=== PATIENT | female | born 1955 | race African-American/Black ===

== ENCOUNTER 2018-11-09 11:56 | Emergency (ER) | payer OTHER ==
[~2018-11-09] VITALS: Ht 162.6 cm; Wt 92.1 kg
[2018-11-09 13:35] LABS: ABSOLUTE NEUTROPHILS 7.9 thou/uL (1.4-8.2); BASOPHILS 0.5 % (0.0-2.0); EOSINOPHILS 0.6 % (0.0-3.0); HEMATOCRIT 39.6 % (37.0-47.0); HEMOGLOBIN 13.3 gm/dL (12.0-15.0); LYMPHOCYTES 18.3 % (24.0-44.0); MCH 27.1 pg (26.0-34.0); MCHC 33.6 g/dL (28.0-37.0); MCV 80.5 fL (80.0-100.0); MONOCYTES 7.1 % (1.0-8.0); PLATELET COUNT 243 thou/uL (150-400); POLYS 73.5 % (36.0-66.0); RBC 4.91 mil/uL (4.20-5.00); RDW 15.1 % (10.5-14.5); WBC 10.7 thou/uL (4.0-11.0)
[2018-11-09 13:44] LABS: ANION GAP 11 mmol/L (7-16); BUN 14 mg/dL (7-18); CALCIUM 9.9 mg/dL (8.5-10.1); CHLORIDE 104 mmol/L (98-107); CO2 23 mmol/L (21-32); CREATININE 1.3 mg/dL (0.6-1.0); GLUCOSE 134 mg/dL (74-106); POTASSIUM 3.6 mmol/L (3.5-5.1); SODIUM 138 mmol/L (136-145)
[2018-11-09 13:49] LABS: APTT 28.4 Seconds (24.5-32.8); D-DIMER 0.47 ug/mLFEU (0.19-0.50); PROTIME 10.7 Seconds (9.3-11.4)
[2018-11-09 13:55] LABS: ALBUMIN 3.2 g/dL (3.4-5.0); MAGNESIUM 1.9 mg/dL (1.8-2.4); SGOT 10 U/L (15-37); SGPT 22 U/L (30-65); TOTAL BILIRUBIN 0.7 mg/dL (<0.1-1.0); TOTAL PROTEIN 7.6 g/dL (6.4-8.2); TROPONIN-I <0.06 ng/mL (<0.06)
[2018-11-09] MEDS ORDERED: ACETAMINOPHEN-1 EAC1 PO (14:00)
[2018-11-09] MEDS ORDERED: PREDNISONE 20 M20 MG PO (14:00)
--- NOTE | 2018-11-09 15:16 | EKG ---
[facility] [place] [address] ELECTROCARDIOGRAM REPORT Name: SARA FOSTER Room #: [facility] [id number] Admission: 11/09/18 Attend Phys: Discharge: Date of : 57 Report #: [id number] THIS REPORT FOR: //name// [facility] ED Test Date: 2018-11-09 Test Time: 11:58:53 Pat Name: SARA FOSTER Department: Room: Gender: F Ortho Nurse: WG : 1955 Requested By: Morteza Jenkins Order Number: [id number] MD: Sarabjit Smith Measurements Intervals [place] Rate: 117 P: 40 [place]: 150 QRS: -25 QRSD: 73 T: 31 QT: 298 QTc: 416 Interpretive Statements Sinus tachycardia Atrial premature complex Abnormal R-wave progression, early transition Inferior infarct, old No previous ECG available for comparison Electronically Signed On 11-09-2018 15:15:53 CDT by Sarabjit Smith [email or web address] <ELECTRONICALLY SIGNED> By: Sarabjit Smith MD, [facility] 11/09/18 1515 1158 1158 Sarabjit Smith MD, FACC /EPI
[2018-11-09 17:23] VITALS: BP 166/90
== END 2018-11-09 17:23 | disposition home or self-care (01) ==
LOC: ER 11:56
PROVIDERS: Emergency Medicine
DX: C34.91 Malignant neoplasm of unspecified part of right bronchus or lung (principal); R07.89 Other chest pain; R79.89 Other specified abnormal findings of blood chemistry; M79.89 Other specified soft tissue disorders; G81.94 Hemiplegia, unspecified affecting left nondominant side; M79.605 Pain in left leg; Z86.73 Personal history of transient ischemic attack (TIA), and cerebral infarction without residual deficits

== ENCOUNTER 2019-02-20 04:14 | Emergency (ER) | payer OTHER ==
[~2019-02-20] VITALS: Ht 162.6 cm; Wt 91.6 kg
[~2019-02-20 04:14] MED LIST: ACETAMINOPHEN-1 EAC1 PO; PREDNISONE 20 M20 MG PO
[2019-02-20] MEDS ORDERED: TYLENOL WITH CO1 TA1 PO (06:13)
[2019-02-20 06:27] LABS: INR 1.8
[2019-02-20 06:32] LABS: HEMATOCRIT 42.7 % (37.0-47.0); MCH 26.9 pg (26.0-34.0); MCHC 32.8 g/dL (28.0-37.0); MCV 82.2 fL (80.0-100.0); RBC 5.19 mil/uL (4.20-5.00); RDW 15.2 % (10.5-14.5); WBC 11.1 thou/uL (4.0-11.0)
[2019-02-20 06:39] LABS: CREATININE 1.4 mg/dL (0.6-1.0); POTASSIUM 4.2 mmol/L (3.5-5.1)
[2019-02-20 06:44] LABS: ALBUMIN 3.6 g/dL (3.4-5.0); TOTAL BILIRUBIN 0.5 mg/dL (<0.1-1.0); URIC ACID* 5.7 mg/dL (2.6-7.2)
[2019-02-20 09:45] VITALS: BP 114/82
== END 2019-02-20 09:47 | disposition home or self-care (01) ==
LOC: ER 04:14
PROVIDERS: Emergency Medicine
DX: R60.9 Edema, unspecified (principal); I10 Essential (primary) hypertension; Z86.73 Personal history of transient ischemic attack (TIA), and cerebral infarction without residual deficits

== ENCOUNTER 2020-02-28 17:15 | Inpatient (IN) | payer OTHER ==
[~2020-02-28] VITALS: Ht 162.6 cm; Wt 116.5 kg
[~2020-02-28 17:15] MED LIST changes: +TYLENOL WITH CO1 TA1 PO
[2020-02-28 17:35] VITALS: BP 133/74
[2020-02-28 18:05] LABS: BE(vivo) -6.7 mmol/L (-2 to +3); HCO3 16.9 mmol/L (22.0-26.0); PCO2 28.7 mmHg (35.0-45.0); PO2 206.4 mmHg (80.0-100.0); pH 7.387 (7.360-7.450); sO2 99.4 % (92.0-98.0)
[2020-02-28 18:49] LABS: ABSOLUTE NEUTROPHILS 8.6 thou/uL (1.4-8.2); BASOPHILS 0.3 % (0.0-2.0); EOSINOPHILS 0.1 % (0.0-3.0); HEMATOCRIT 39.7 % (37.0-47.0); LYMPHOCYTES 6.5 % (24.0-44.0); MCH 27.1 pg (26.0-34.0); MCHC 32.7 g/dL (28.0-37.0); MCV 83.1 fL (80.0-100.0); MONOCYTES 3.8 % (1.0-8.0); PLATELET COUNT 222 thou/uL (150-400); POLYS 89.3 % (36.0-66.0); RBC 4.77 mil/uL (4.20-5.00); RDW 17.5 % (10.5-14.5); WBC 9.6 thou/uL (4.0-11.0)
[2020-02-28 18:57] LABS: ANION GAP 11 mmol/L (7-16); BUN 21 mg/dL (7-18); CALCIUM 8.6 mg/dL (8.5-10.1); CHLORIDE 104 mmol/L (98-107); CO2 25 mmol/L (21-32); CREATININE 1.8 mg/dL (0.6-1.0); GLUCOSE 140 mg/dL (74-106); POTASSIUM 4.3 mmol/L (3.5-5.1); SODIUM 140 mmol/L (136-145)
[2020-02-28 19:07] LABS: ALBUMIN 2.6 g/dL (3.4-5.0); SGOT 43 U/L (15-37); SGPT 23 U/L (30-65); TOTAL BILIRUBIN 0.9 mg/dL (0.2-1.0); TOTAL PROTEIN 7.2 g/dL (6.4-8.2)
[2020-02-28 19:23] LABS: TROPONIN-I <0.06 ng/mL (<0.06)
[2020-02-28 20:28] LABS: URINE CLARITY CLOUDY; URINE COLOR YELLOW; URINE PROTEIN (DIPSTICK) 3+ (Negative)
[2020-02-28 20:29] LABS: URINE BILIRUBIN NEGATIVE (Negative); URINE BLOOD 1+ (Negative); URINE GLUCOSE-RANDOM* NEGATIVE (Negative); URINE KETONES NEGATIVE (Negative); URINE LEUKOCYTES-REFLEX 3+ (Negative); URINE NITRITE-REFLEX POSITIVE (Negative); URINE UROBILINOGEN 0.2 E.U./dl (0.2-1.0)
[2020-02-28 20:30] LABS: BACTERIA-REFLEX >30 Many /HPF (None Seen); CASTS None Seen /LPF (None Seen); CRYSTALS None Seen /LPF (None Seen); MUCUS 4-6 Moderate strn/LPF (None Seen); SQUAMOUS 0-3 Few /LPF (0-3); URINE WBC-REFLEX >25 Many /HPF (0-5)
[2020-02-28 20:31] LABS: WBC CLUMPS Moderate (None Seen)
[2020-02-28 20:46] VITALS: BP 113/67
[2020-02-28 20:50] VITALS: BP 113/67
[2020-02-28 22:04] VITALS: BP 119/65
[2020-02-28 22:23] VITALS: BP 132/67
--- NOTE | 2020-02-29 04:22 | NUR ---
covid positive per lab report at this time.
[2020-02-29 04:40] LABS: HEMATOCRIT 39.8 % (37.0-47.0); HEMOGLOBIN 12.7 gm/dL (12.0-15.0); MCH 26.7 pg (26.0-34.0); MCV 83.3 fL (80.0-100.0); RBC 4.77 mil/uL (4.20-5.00); RDW 17.2 % (10.5-14.5); WBC 9.5 thou/uL (4.0-11.0)
[2020-02-29 04:44] LABS: CALCIUM 8.2 mg/dL (8.5-10.1); CREATININE 1.4 mg/dL (0.6-1.0); MAGNESIUM 2.2 mg/dL (1.8-2.4); POTASSIUM 4.4 mmol/L (3.5-5.1)
[2020-02-29 04:55] VITALS: BP 153/86
[2020-02-29 04:56] VITALS: BP 153/86
--- NOTE | 2020-02-29 05:10 | NUR ---
ASSESSMENTS CHARTED, MEDS CHARTED GIVEN. PATIENT ARRIVED MID SHIFT FROM ED ON BIPAP. ALERT AND ORIENTED. SINUS TACH ON TELEMETRY. PATIENT HAS PRESSURE WOUNDS, AND ESCORIATED VICENTE AREA. PATIENT SAYS SHE IS UP INDEPENDENT TO THE BATHROOM AND TAKES CARE OF HER DAILY LIVING BY HERSELF. SHE LIVES WITH HER DAUGHTER. ADMITTED INTO COMPUTER SYSTEM, SETTLED INTO ROOM. FALL PRECAUTIONS IN PLACE DURING SHIFT.
[2020-02-29 07:25] VITALS: BP 149/89
[2020-02-29 11:35] VITALS: BP 132/91
[2020-02-29 15:23] VITALS: BP 144/86
--- NOTE | 2020-02-29 17:02 | NUR ---
assumed care of pt at 0700. pt alert and oriented, in no acute distress, on bipap throughout most of day. now on high flow nasal cannula, maintains spo2 >88-89%. turned q2h. wounds covered with zguard. iv abx infusing per order. calls appropriately. wcm.
[2020-02-29 19:56] VITALS: BP 156/101
[2020-03-01 04:44] VITALS: BP 159/100
[2020-03-01 05:36] LABS: GLYCOHEMOGLOBIN (HGB A1C) 6.7 % (4.8-5.6)
--- NOTE | 2020-03-01 08:56 | NUR ---
PATIENT IS NOT TERLATED OFF BIPAP. DESAT TO 74% ON 15L/NC. SWITCHED TO BIPAP 75% FIO2 SAT 98%.
[2020-03-01 09:00] VITALS: BP 153/92
--- NOTE | 2020-03-01 12:13 | HC ---
[facility] [place] [address] CONSULTATION Name: SARA FOSTER Room #: 360- ADM IN M.R.#: [id number] Admission: 02/28/20 Attend Phys: Jim Almeida MD Discharge: Date of : 57 Report #: [id number] THIS REPORT FOR: cc: Venessa Gilmore MD, Kelly A. MD Jetmore, Allen B. MD ~ DATE OF SERVICE: 02/29/2020 WOUND CARE CONSULTATION LOCATION: [facility]. REASON FOR CONSULTATION: Pressure sores of right and left buttock in the setting of immobility and COVID-19 pneumonia with respiratory insufficiency. HISTORY OF PRESENT ILLNESS: The patient is a 64-year-old woman living at home, admitted to the Emergency Room for respiratory decompensation with shortness of breath and generalized malaise. The grandson at home tested positive for COVID-19 and the patient has tested positive for COVID-19 in the hospital. She is immobile with a foot drop, history of cerebrovascular accident. She was noted to have pressure sores of her back or buttocks. Wound Care is consulted. She has respiratory insufficiency, was found to have interstitial opacities on chest x-ray and has been begun on IV antibiotics, vancomycin, Zosyn and azithromycin. Wound care is consulted for wounds of her back. PAST MEDICAL HISTORY: 1. Immobility. 2. Cerebrovascular accident with left-sided residual weakness and foot drop. 3. Hypertension. 4. Obesity. 5. History of renal cancer. PAST SURGICAL HISTORY: Left nephrectomy. SOCIAL HISTORY: She lives with her daughter. Grandson lives in the home who is COVID-19 positive. ALLERGIES: No known drug allergies. PHYSICAL EXAMINATION: GENERAL: Shows an alert, obese woman on a BiPAP breathing mask. HEENT: Mucous membranes are moist. She is alert and cooperative. NECK: Shows full range of motion. EXTREMITIES: There are no lower extremity wounds. ABDOMEN: Obese. Examination of the patient's lower abdomen and groin crease [address] [address] CONSULTATION Name: SARA FOSTER Room #: [address] [place] [address] [place] .R.#: [id number] Admission: 02/28/20 Attend Phys: Jim Almeida MD Discharge: Date of : 57 Report #: [id number] shows fungal dermatitis in bilateral groin creases where the abdominal panniculus is in contact with the groin. Nystatin powder ordered. BACK: Examination of the patient's back shows a stage 2 pressure sore of her right upper buttock near the sacrum measuring approximately 3 x 4 cm. There is a smaller 1.5 x 2 cm stage 2 pressure ulcer of her left lower buttock. These are tender to touch. IMPRESSION: 1. Obesity. 2. Respiratory failure with COVID-19 pneumonia. 3. Fungal dermatitis of bilateral groin creases. Nystatin powder ordered b.i.d. 4. Immobility status post cerebrovascular accident with left lower extremity weakness. 5. Right upper buttock stage 2 pressure ulcer. Barrier cream ordered and offloading with low air loss mattress. 6. Left lower buttock stage 2 pressure ulcer. Barrier cream ordered b.i.d. and offloading with low air loss mattress. Wound Care team will follow. <ELECTRONICALLY SIGNED> By: Akbar Gimenez MD 03/01/20 1213 0603 0714 Akbar Gimenez MD /nt
[2020-03-01 12:43] VITALS: BP 164/97
[2020-03-01 17:19] VITALS: BP 150/103
--- NOTE | 2020-03-01 18:21 | NUR ---
VAT CONSULTED FOR A CL FOR COVID+ STATUS AND POSS ICU TSF. 1ST IJ ATTEMPT WITH TIP ACROSS SUBCLAVIAN AND OTW EXCHANGED FOR A NEW CL AND TIP UP THE RT IJ. IR TO REPOSITION PT WILL NOT ALLOW THE LEFT SIDE TO BE ATTEMPTED. WILL PLACE ORDER FOR IR TO PLACE 03/02/20
--- NOTE | 2020-03-01 18:24 | NUR ---
PT HAS LT CVA AND VESSELS IN CEDRIC ARE NOT ADEQUATE FOR A PICC. PT IS ALSO HIGH RISK FOR DVT DUE TO COVID STATUS. PT HAD A NEPHRECTOMY DUE TO KIDNEY CANCER AND WILL NEED VESSEL PRESERVATION FOR FUTURE NEEDS. ORDER FOR IR TO REPOSITION RT IJ PLACED FOR 03/02/20 AT 0800
[2020-03-01 19:59] VITALS: BP 150/90
[2020-03-02 03:51] VITALS: BP 142/84
--- NOTE | 2020-03-02 05:53 | NUR ---
PT MAKING POOR PROGRESS TOWARDS GOALS. ON BIPAP THROUGHOUT THE NIGHT, OCCASIONALLY ON O2 AT 15L PER NC INORDER TO TAKE SOME PO. O2 SATS ON BIAP 02/11 FI02 70% ARE IN THE MID 90'S. O2 AT 15L PER NC HAS STATS AT 79-81%. PT DID STATE THAT SHE FEELS SHE IS BREATHING EASIER SINCE USING THE BIPAP. PT DID REMAIN ON BIPAP THROUGHOUT THE NIGHT. PT REQUIRED X2 ASSISTANCE TO SIT UP AND SIT AT THE BEDSIDE. BARRIER CREAM APPLIED TO BL BUTTOCK WOUNDS.
[2020-03-02 06:27] LABS: ABSOLUTE NEUTROPHILS 8.4 thou/uL (1.4-8.2); BASOPHILS 0.1 % (0.0-2.0); EOSINOPHILS 0.2 % (0.0-3.0); HEMATOCRIT 34.9 % (37.0-47.0); HEMOGLOBIN 11.2 gm/dL (12.0-15.0); MCH 26.6 pg (26.0-34.0); MCV 83.2 fL (80.0-100.0); MONOCYTES 8.4 % (1.0-8.0); PLATELET COUNT 223 thou/uL (150-400); POLYS 86.3 % (36.0-66.0); RBC 4.19 mil/uL (4.20-5.00); RDW 17.1 % (10.5-14.5); WBC 9.7 thou/uL (4.0-11.0)
[2020-03-02 06:49] LABS: ALBUMIN 2.2 g/dL (3.4-5.0); CALCIUM 7.5 mg/dL (8.5-10.1); CREATININE 1.4 mg/dL (0.6-1.0); DIRECT BILIRUBIN 0.2 mg/dL (<0.1-0.2); PHOSPHORUS 2.3 mg/dL (2.5-4.9); POTASSIUM 3.8 mmol/L (3.5-5.1); TOTAL BILIRUBIN 0.4 mg/dL (0.2-1.0)
[2020-03-02 07:36] LABS: INR 1.5; PROTIME 15.6 Seconds (9.3-11.4)
[2020-03-02 08:27] VITALS: BP 142/91
[2020-03-02 11:50] VITALS: BP 147/82
[2020-03-02 15:32] VITALS: BP 150/85
--- NOTE | 2020-03-02 16:15 | NUR ---
INITIAL ASSESSMENT: Received consult. SW reviewed chart and spoke with nursing and attending physician. Pt was admitted from home due to acute respiratory failure. Pt placed in Enhanced Isolation. Pt had positive COVID test prior to admission. Pt is afebrile and requiring bipap support. Pt is on IV abx and IV steroids. Pt has started course of Remdesivir. Pt with hx of CVA. Pt lives at home with her daughter. Will need therapy evals ordered to assist with recommendation for discharge needs. SW to follow up with pt/family and assist as needed.
--- NOTE | 2020-03-02 16:22 | NUR ---
ASSUMED PATIENT CARE AT 0700. A/O X4. SWITCHED TO NRB AT 1530 GIVE PATIENT BREAK OFF BIPAP. PATIENT TOLERATED WELL. ASSISTED TURN. VSS. SLOWLY TOWARDS POC GOALS.
[2020-03-02 19:48] VITALS: BP 159/86
[2020-03-03 04:55] VITALS: BP 162/95
--- NOTE | 2020-03-03 06:09 | NUR ---
PT MAKING SLOW PROGRESS TOWARDS GOALS. PT INITIALLY ON NRB MASK WITH O2 SATS 94-95%. PT AGREEABLE AND COMPLIANT WITH WEARING BIPAP OVERNIGHT. PT DID REPORT THAT SHE FEELS SHE IS BREATHING MORE EASILY THAN YESTERDAY.
[2020-03-03 06:26] LABS: ALBUMIN 2.2 g/dL (3.4-5.0); CALCIUM 7.4 mg/dL (8.5-10.1); CREATININE 1.3 mg/dL (0.6-1.0); DIRECT BILIRUBIN 0.2 mg/dL (<0.1-0.2); PHOSPHORUS 2.3 mg/dL (2.5-4.9); POTASSIUM 3.8 mmol/L (3.5-5.1); TOTAL BILIRUBIN 0.6 mg/dL (0.2-1.0); TOTAL PROTEIN 5.7 g/dL (6.4-8.2)
[2020-03-03 07:26] VITALS: BP 146/82
[2020-03-03 11:10] VITALS: BP 163/94
--- NOTE | 2020-03-03 15:18 | NUR ---
NATALIIA reviewed chart and spoke with nursing and attending physician. Pt remains in Enhanced Isolation due to COVID-19. Pt is afebrile and requiring bipap support. Pt is on IV abx and IV steroids. Pt is completing course of Remdesivir. NATALIIA spoke with pt's dtr, Tereza, via phone. Introduced role of NATALIIA. Pt is normally alert/orientated. Pt lives at home with her dtr, Tereza. Tereza and family all have COVID. Prior to admission, pt was ambulating with a quad cane. There are 13 steps inside the home. Pt was not on O2 or any breathing treatments prior to admission. Pt's PCP is Dr. Venessa Gilmore. Pt was recently on service with [facility]. No hx of post-acute placement. Pt will need therapy evals when able to participate. Provided NATALIIA's contact info to Tereza. NATALIIA is following to assist as needed with discharge planning.
[2020-03-03 15:25] VITALS: BP 180/87
--- NOTE | 2020-03-03 19:41 | NUR ---
KEEPS TAKING OFF BIPAP AND YELLING FOR HELP TO PUT IT BACK ON. EDUCATED ON NEED TO LEAVE BIPAP ON HER SATS IMMEDIATELY DROP TO LOW 70s ONCE SHE IS NOT ON BIPAP. KEPT CLEAN AND DRY. CHACKO IN PLACE DRAINING CLEAR YELLOW URINE.
[2020-03-03 19:51] VITALS: BP 158/85
[2020-03-03 19:52] VITALS: BP 158/85
[2020-03-04 04:46] VITALS: BP 152/98
--- NOTE | 2020-03-04 05:44 | NUR ---
PT MAKING POOR PROGRESS TOWARD GOALS. ON BIPAP AT 70% OVERNIGHT. RT PLACED OPTIFLO AT 80% AND 50L VIA HIFLO CANNULA. O2 SAT 89-91% WITH THIS DEVICE. PT RETURNED TO BIPAP AFTER APPOXIMATELY 90 MINUTES DUE TO DROWSINESS AND FALLING O2 SAT (86-87%) ON HIFLO CANNULA. O2 SATS RETURNED TO 92% AFTER RESUMING BIPAP.
[2020-03-04 06:37] LABS: ALBUMIN 2.6 g/dL (3.4-5.0); CALCIUM 7.6 mg/dL (8.5-10.1); CREATININE 1.3 mg/dL (0.6-1.0); DIRECT BILIRUBIN 0.4 mg/dL (<0.1-0.2); PHOSPHORUS 2.3 mg/dL (2.5-4.9); POTASSIUM 4.3 mmol/L (3.5-5.1); TOTAL BILIRUBIN 0.6 mg/dL (0.2-1.0)
[2020-03-04 07:19] VITALS: BP 166/111
[2020-03-04 11:16] VITALS: BP 157/111
[2020-03-04 15:27] VITALS: BP 165/101
--- NOTE | 2020-03-04 15:42 | NUR ---
SW reviewed chart and spoke with nursing and attending physician. Pt remains in Enhanced Isolation due to COVID-19. Pt is afebrile and requiring bipap support. Pt is on IV abx and IV steroids. Completing course of Remdesivir. Pt will need therapy evals ordered when she is able to participate to assist with recommendations for discharge needs. NATALIIA is following to assist as needed with discharge planning.
--- NOTE | 2020-03-04 18:44 | NUR ---
PATIENT ON BIPAP 80% ON THIS SHIFT. REFUSED EAT. NOT TOWARDS POC GOALS.
[2020-03-04 19:40] VITALS: BP 153/104
[2020-03-05 03:57] VITALS: BP 151/104
--- NOTE | 2020-03-05 07:12 | NUR ---
PATIENTS CARE WAS ASSUMED AT SHIFT CHANGE. PATIENT WAS ASSESSED AND MEDS WERE PASSED. PATIENT HAD A CONTINUES PROBLEM GETTING DISCONNECTED FROM THE BI PAP. RESTRINS ORDER WAS OBTAINED AT 0300. PROBLEM RESOLVED AND TUBE WAS ALSO TAPED. BED IS IN A LOW AND LOCK POSITION
[2020-03-05 07:13] LABS: ALBUMIN 2.6 g/dL (3.4-5.0); CALCIUM 8.3 mg/dL (8.5-10.1); CREATININE 1.4 mg/dL (0.6-1.0); DIRECT BILIRUBIN 0.3 mg/dL (<0.1-0.2); PHOSPHORUS 2.7 mg/dL (2.6-4.7); POTASSIUM 4.4 mmol/L (3.5-5.1); TOTAL BILIRUBIN 0.7 mg/dL (0.2-1.0); TOTAL PROTEIN 6.4 g/dL (6.4-8.2)
[2020-03-05 07:27] VITALS: BP 164/105
[2020-03-05 11:45] VITALS: BP 172/95
[2020-03-05 15:36] VITALS: BP 167/73
--- NOTE | 2020-03-05 20:24 | NUR ---
ASSUMED PATIENT CARE AT 0700. A/O X3 CONFUSED. OFF RESTRAINT AT 0800. REFUSED TO EAT. BIPAP MASK PULLED OFF THREE TIMES. NOT TOWARDS POC GOALS.
[2020-03-05 20:50] VITALS: BP 146/94
[2020-03-06 01:51] VITALS: BP 153/84
--- NOTE | 2020-03-06 05:34 | NUR ---
CALL TO LAB TO REQUEST STAT TROPONIN, NO ANSWER FOR 2 NUMBERS AND LET RING FOR OVER 1 MINUTE
--- NOTE | 2020-03-06 06:16 | NUR ---
BIPAP COMING APART OR PT PULLING AT TUBING ALL SHIFT. ORIENTED TO SELF AND KNOWS SHES IN THE HOSPITAL BUT THOUGHT SHE WAS AT [facility]. REPORTED CHEST PAIN AT 0530, INTERMITTENT, NOT RELATED TO BREATHING, CRYING OUT WITH PAIN AT ONE MOMENT, LAUGHING WITH RN THE NEXT. GAVE ZOFRAN AND OBTAINED EKG, STAT TROP, AWAITING RESULTS AND CALLED REYNOLD AGUSTIN. REPOSITIONED WHEN PT ALLOWS.
--- NOTE | 2020-03-06 07:21 | EKG ---
[address] [place] [address] ELECTROCARDIOGRAM REPORT Name: SARA FOSTER Room #: 360-P ADM IN M.R.#: [id number] Admission: 02/28/20 Attend Phys: Jim Almeida MD Discharge: Date of : 57 Report #: [id number] [facility] Test Date: 2020-03-06 Test Time: 05:15:45 Pat Name: SARA FOSTER Department: Room: 360 P Gender: F Public Relations Account Supervisor: Rogelio Robertson : 1955 Requested By: Luz Elena Montalvo Order Number: [id number] MD: Sarabjit Smith Measurements Intervals [place] Rate: 92 P: 11 NC: 114 QRS: -28 QRSD: 84 T: 57 QT: 369 QTc: 457 Interpretive Statements Sinus rhythm Borderline short NC interval Abnormal R-wave progression, early transition Inferior infarct, old Compared to ECG 02/28/2020 18:58:24 Myocardial infarct finding now present Sinus tachycardia no longer present Electronically Signed On 03-06-2020 7:21:06 CARDIOVASCULAR DISEASE SPECIALIST by Sarabjit Smith [email or web address] <ELECTRONICALLY SIGNED> By: Sarabjit Smith MD, [facility] 03/06/20 0721 4 4 Sarabjit Smith MD, [facility] /EPI
[2020-03-06 08:31] VITALS: BP 153/95
[2020-03-06 09:30] VITALS: BP 145/85
--- NOTE | 2020-03-06 09:49 | NUR ---
Persistant hyperglycemia: added carb control diet and may want to consider discontinue D5 fluids
[2020-03-06 12:35] VITALS: BP 147/74
--- NOTE | 2020-03-06 13:42 | NUR ---
NATALIIA reviewed chart and spoke with nursing and attending physician. Pt remains in Enhanced Isolation due to COVID-19. Pt is afebrile and requiring bipap support. Pt is on IV abx and IV steroids. NATALIIA received call from pt's dtr, Marycruz, and pt's niece. Conference call regarding family request of pt appointing a DPOA. NATALIIA explained that pt must be alert/orientated x 4 in order to complete DPOA document. Pt's family verbalized understanding and would like to speak with pt's dtr. Pt's dtr states she has not spoken with a physician during hospitalization. NATALIIA provided Marycruz's contact info to attending physician. Per attending physician, pt has the capacity to appoint a DPOA. Spiritual care and house shorer paged to notarize DPOA documentation. Documentation to be placed on chart once completed. No weekend discharge planned. Pt will need therapy evaluations when able to participate. NATALIIA is following to assist as needed with discharge planning.
[2020-03-06 16:57] VITALS: BP 150/84
--- NOTE | 2020-03-06 18:02 | NUR ---
ASSUMED PATIENT CARE AT 0700 . A/O 3. REFUSED EAT. SWITCHED TO OPTIFLOW 50L 90%. PATIENT TOLERATED WELL. SLOWLY TOWARDS POC GOALS.
[2020-03-06 19:58] VITALS: BP 146/73
[2020-03-07] VITALS (33 sets, daily range): BP systolic 112–188; BP diastolic 26–108
[2020-03-07 00:55] LABS: BE(vivo) 2.4 mmol/L (-2 to +3); HCO3 26.1 mmol/L (22.0-26.0); PCO2 37.3 mmHg (35.0-45.0); PO2 58.5 mmHg (80.0-100.0); pH 7.462 (7.360-7.450); sO2 91.9 % (92.0-98.0)
--- NOTE | 2020-03-07 06:30 | NUR ---
PT ANXIOUS, CONFUSED, CONTINUALLY TAKING BIPAP OFF AND DESAT TO 50-70%. GAVE ATIVAN X2 AND CALLED CRIME SCENE SPECIALIST FOR RESTRAINT ORDER, PT WAS NOT REORIENTABLE AND NOT CALMED BY THE ATIVAN ALONE. AFTER PLACING RESTRAINT, PT RESTED THROUGHOUT SHFT, PULLING TV 500+, MINIMAL AIR LEAK ON VENT AND SATS 95-99%. PT ELEVATED AND TURNED WITH PILLOWS
[2020-03-07 09:36] LABS: MCV 83.4 fL (80.0-100.0)
[2020-03-07 09:38] LABS: HEMATOCRIT 42.1 % (37.0-47.0); HEMOGLOBIN 13.6 gm/dL (12.0-15.0); MCH 26.9 pg (26.0-34.0); MCHC 32.2 g/dL (28.0-37.0); RBC 5.05 mil/uL (4.20-5.00); RDW 17.2 % (10.5-14.5); WBC 19.2 thou/uL (4.0-11.0)
[2020-03-07 10:29] LABS: ABSOLUTE NEUTROPHILS 17.9 thou/uL (1.4-8.2); ANISOCYTOSIS 1+
[2020-03-07 10:30] LABS: PLATELET COUNT 265 thou/uL (150-400)
[2020-03-07 11:12] LABS: ALBUMIN 2.9 g/dL (3.4-5.0); CALCIUM 8.9 mg/dL (8.5-10.1); CREATININE 1.3 mg/dL (0.6-1.0); MAGNESIUM 2.5 mg/dL (1.8-2.4); POTASSIUM 4.6 mmol/L (3.5-5.1); TOTAL BILIRUBIN 0.8 mg/dL (0.2-1.0); TOTAL PROTEIN 6.4 g/dL (6.4-8.2)
--- NOTE | 2020-03-07 11:38 | NUR ---
CONFERENCE AND EVENT ORGANISER CALLED AT 1020. SEE FLOWSHEET. PT NOW WITH ORDERS FOR ICU AND WILL TRANSFER AT THIS TIME.
--- NOTE | 2020-03-07 12:27 | NUR ---
ASSUMED PATIENT CARE AT 0700. ALERT RESTLESS ON BED WITH RIGHT HAND ON RESTRAINT.NOTED PATIENT HAS DARK BLOOD ON LIPS. DEEPLY ORAL CARE JOSE NOT SEE ANY BLEEDING. NOTED PATIENT CUGHT OUT RED BLOOD QIUT BIT. SHIPPING ASSOCIATE INITIATED AT 0920. DR ZELAYA COME TO SEE PATIENT. STAT ORDER DONE. NOTIFIED PATIENT DAUGHTER GABI PATIENT CONDITION. FAMILY CHANGED PATIENT CODE TO FULL CODE. PATIENT CHIKA HAS RED BLOOD COUGHTED OUT. SUCTION AND ORAL CARE NEED. FACETIME TO FAMILY. PATIENT WILL TRANSFER TO [facility] SOON.
--- NOTE | 2020-03-07 15:14 | NUR ---
SPOKE WITH GRANDSON ON THE PHONE REGARDING DTR WISHES TO TRANSFER PATIENT TO [facility] DUE TO CONVERSATION WITH DR BERTRAND. INFORMED G-SON THAT PT IS NOT STABLE FOR TRANSFER AT THIS TIME BUT WILL REACH OUT IF BECOMES STABLE. ALSO, [place] AT [place]. SPOKE WITH DAUGHTER OVER THE PHONE, WHO WAS VERY IRATE AND YELLING, STATING SHE WAS TREATED UNPROFESSIONALLY BY THE DR. I TRIED TO GIVE HER AN UPDATE AND GIVE HER THE PATIENT ADVOCATE NUMBER BUT SHE WOULD NOT TAKE IT. STATES SHE WILL HAVE THE NEWS AND A MID WIFE PREPARED.
--- NOTE | 2020-03-07 15:31 | NUR ---
1520- Per Dr. Sal, give Ativan that he ordered at this time.
--- NOTE | 2020-03-07 16:31 | NUR ---
THIS RN WAS TAKE CARE THIS PATIENT IN PASSED A FEW DAYS. PATIENT ALERT AND ORIENTED. WAS ON BIPAP 6 DAYS. I ASKED PATIENT TWO TIMES" DO YOU WANT BE INTUBATED PUT YOU ON VENT IF YOU ARE NOT ABLE TO BREATHING WELL BY YOU SELF" PATIENT STATE " NO. I DONT WANT TO". ON 03/06/20 [facility] CAME UP TRY TO DO DPOA PAPER. RN SAID PATIENT ON BIPAP YOU PROABBLY NOT ABLE TO HERE WHAT SHE SAY. [facility] ASKING ME BRING A PIECE PAPER LET PATIENT WRITE WHO WILL BE HER DOPA IF PATINET NOT ABLE TO MAKE HER OWN DECISION. PATIENT WRITE HER GRANDSON KAREN. [facility] GOT THAT PAPER TOLD RN HE WILL CONTACT KAREN THEN COME BACK TO ME.
--- NOTE | 2020-03-07 17:51 | NUR ---
5FRTLCL PLACED LT IJ, PLEASE SEE NI FOR DETAILS
[2020-03-07 19:10] LABS: INR 1.5; PROTIME 15.6 Seconds (9.3-11.4)
--- NOTE | 2020-03-07 20:49 | NUR ---
1300: ASSUMED CARE AT 1300 FROM 3W RNJESUS. PT ARRIVED ON BIPAP, TRANSFERED AND SETTLED IN THE ICU. DR. BERTRAND PRESENT WHEN PT ARRIVED, PLAN OF CARE DISCUSSED. DR. BERTRAND VOICED HE WANTS PT TO REMAIN RESTRAINED ON BIPAP WITH THE RISK OF HEMOPTYSIS, PT IS A DNI AND CANNOT TOLERATE OPTIFLOW, PER DR. BERTRAND. RN WILL CONTINUE TO MONITOR. 1630: VASCULAR ACCESS ACHIEVIED BY IV TEAM PLACING A LEFT IJ, STAT CHEST X RAY APPROVED LOCATION.
[2020-03-08] VITALS (31 sets, daily range): BP systolic 79–172; BP diastolic 16–127
[2020-03-08 05:29] LABS: BE(vivo) 1.6 mmol/L (-2 to +3); PO2 87.6 mmHg (80.0-100.0); pH 7.387 (7.360-7.450); sO2 96.5 % (92.0-98.0)
--- NOTE | 2020-03-08 06:00 | NUR ---
PT REMAINS ON BIPAP DROUSY. REFUSES TO BE TURNED. 600 CC UOP THIS SHIFT. NO FURTHER BLEEDING. VSS WILL CONT TO MONITOR
--- NOTE | 2020-03-08 12:20 | NUR ---
ASSUMED CARE AT 0700, ASSESSMENT AND VITAL SIGNS COMPLETED PER ICU PROTOCOL. DR. BERTRAND ROUNDED THIS AM, PLAN OF CARE DISCUSSED. RN WILLC CONTINUE TO MONITOR. PT'S DAUGHTER, GABI CALLED RN FOR AN UPDATE, SECURITY CODE PROVIDED. NO FURTHER QUESTIONS VOICED.
[2020-03-08 21:37] LABS: HEMATOCRIT 34.6 % (37.0-47.0); MCH 26.5 pg (26.0-34.0); MCHC 31.7 g/dL (28.0-37.0); MCV 83.8 fL (80.0-100.0); RBC 4.14 mil/uL (4.20-5.00); RDW 17.5 % (10.5-14.5)
[2020-03-08 21:38] LABS: PLATELET COUNT 156 thou/uL (150-400)
[2020-03-08 22:03] LABS: ALBUMIN 2.3 g/dL (3.4-5.0); CALCIUM 8.5 mg/dL (8.5-10.1); CREATININE 1.2 mg/dL (0.6-1.0); POTASSIUM 4.8 mmol/L (3.5-5.1); TOTAL BILIRUBIN 0.7 mg/dL (0.2-1.0); TOTAL PROTEIN 5.5 g/dL (6.4-8.2)
[2020-03-08 22:31] LABS: ABSOLUTE NEUTROPHILS 16.6 thou/uL (1.4-8.2); ANISOCYTOSIS 1+
[2020-03-09] VITALS (67 sets, daily range): BP systolic 84–162; BP diastolic 48–109
--- NOTE | 2020-03-09 06:00 | NUR ---
REMAINS ON BIPAP 90 % DROUSY 1500 CC UO . PRECEDEX AT 0.1 MCG SINUS RHYTHM. COVID+ WILL CONT TO MONITOR.
--- NOTE | 2020-03-09 07:53 | EKG ---
[place] [address] [facility] [place] [address] ELECTROCARDIOGRAM REPORT Name: SARA FOSTER Room #: 238-P ADM IN M.R.#: [id number] Admission: 02/28/20 Attend Phys: Jim Almeida MD Discharge: Date of : 57 Report #: [id number] [facility] ED Test Date: 2020-02-28 Test Time: 18:58:24 Pat Name: SARA FOSTER Department: Room: 360 Gender: F Punchboard Assembler: JACOB : 1955 Requested By: Luke Canchola Order Number: [id number] MD: Don Medina Measurements Intervals [place] Rate: 111 P: 13 CO: 128 QRS: 82 QRSD: 85 T: 53 QT: 341 QTc: 464 Interpretive Statements Sinus tachycardia Ventricular premature complex Borderline right axis deviation Low voltage, precordial leads Abnormal R-wave progression, early transition Nonspecific T abnormalities, anterior leads Compared to ECG 11/09/2018 11:58:53 Ventricular premature complex(es) now present Low QRS voltage now present T-wave abnormality now present Atrial premature complex(es) no longer present Electronically Signed On 03-02-2020 7:18:05 PLATER SUPERVISOR by Don Medina [email or web address] <ELECTRONICALLY SIGNED> By: Don Medina MD, FACC 03/02/20 0718 57 57 Don Medina MD, FACC /EPI
[2020-03-09 08:59] LABS: ABSOLUTE NEUTROPHILS 15.6 thou/uL (1.4-8.2); BASOPHILS 0.1 % (0.0-2.0); HEMATOCRIT 34.9 % (37.0-47.0); LYMPHOCYTES 1.6 % (24.0-44.0); MCH 26.3 pg (26.0-34.0); MCHC 31.4 g/dL (28.0-37.0); MCV 83.6 fL (80.0-100.0); PLATELET COUNT 151 thou/uL (150-400); POLYS 92.3 % (36.0-66.0); RBC 4.18 mil/uL (4.20-5.00); RDW 17.5 % (10.5-14.5); WBC 16.9 thou/uL (4.0-11.0)
[2020-03-09 09:16] LABS: ALBUMIN 2.3 g/dL (3.4-5.0); CALCIUM 8.6 mg/dL (8.5-10.1); CREATININE 1.1 mg/dL (0.6-1.0); MAGNESIUM 2.5 mg/dL (1.8-2.4); PHOSPHORUS 2.7 mg/dL (2.6-4.7); POTASSIUM 4.5 mmol/L (3.5-5.1); TOTAL BILIRUBIN 0.7 mg/dL (0.2-1.0); TOTAL PROTEIN 5.4 g/dL (6.4-8.2)
--- NOTE | 2020-03-09 09:25 | NUR ---
0983- Nurse talked with and updated patients daughterMarycruz. Her questions were answered.
--- NOTE | 2020-03-09 11:54 | NUR ---
1154- Nurse talked with patients daughter to inform her of intubation request per Physician. She expressed she is agreeable to this. Nurse called the phone number for Jonh two times, with only a viocemail, no answer. Nurse to continue to attempt to call.
[2020-03-09 13:36] LABS: BE(vivo) -1.6 mmol/L (-2 to +3); HCO3 25.5 mmol/L (22.0-26.0); PCO2 53.9 mmHg (35.0-45.0); PO2 78.6 mmHg (80.0-100.0); sO2 94.1 % (92.0-98.0)
[2020-03-09 13:37] LABS: pH 7.293 (7.360-7.450)
--- NOTE | 2020-03-09 14:10 | NUR ---
1410- WARNER MOREL, RETURNED RNS CALL. HE WAS UPDATED ON CURRENT EVENTS AND INTUBATION REQUIREMENT. Questions answered in regards to patient status and orientation.
--- NOTE | 2020-03-09 15:40 | NUR ---
Case discussed with the care team. Pt remains in ICU with worsening respiratory status requiring intubation today. Nursing attempting to reach pt's judie Mcpherson and dtr Marycruz. Will follow along for support as needed.
--- NOTE | 2020-03-09 21:03 | NUR ---
ASSUMED CARE OF PATIENT AT 1900. PATIENT HYPOTHERMIC, CHACKO HAS TEMP MONITORING. BEAR HUGGER PLACED, EXTRA BLANKETS. CVP INITIATED PER DR BOLANOS, SPOT CHECK READS 19. MAKING EXCELLENT URINE. DAUGHTER CALLED AT 2099, UPDATE GIVEN. NOT PROGRESSING TOWARDS POC GOALS AT THIS TIME.
[2020-03-10] VITALS (36 sets, daily range): BP systolic 95–144; BP diastolic 27–70
[2020-03-10 09:10] LABS: HEMATOCRIT 28.3 % (37.0-47.0); MCH 26.5 pg (26.0-34.0); MCHC 31.3 g/dL (28.0-37.0); MCV 84.8 fL (80.0-100.0); RBC 3.33 mil/uL (4.20-5.00); RDW 17.2 % (10.5-14.5); WBC 21.7 thou/uL (4.0-11.0)
[2020-03-10 09:17] LABS: HEMOGLOBIN 8.8 gm/dL (12.0-15.0)
[2020-03-10 09:23] LABS: CALCIUM 8.2 mg/dL (8.5-10.1); CREATININE 1.2 mg/dL (0.6-1.0); POTASSIUM 4.6 mmol/L (3.5-5.1)
--- NOTE | 2020-03-10 10:18 | NUR ---
SPOKE WITH PATIENT'S DAUGHTER, GABI, AND UPDATED HER ON THE PATIENT'S STATUS AND POC FOR TODAY.
--- NOTE | 2020-03-10 13:45 | NUR ---
BEDSIDE EGD DONE
--- NOTE | 2020-03-10 16:19 | NUR ---
THANH. NIDHI CALLED IN AND UPDATED ON HER MOTHER'S CONDITION AND POC.
--- NOTE | 2020-03-10 16:21 | NUR ---
PATIENT IS NOT PROGRESSING TOWARDS OUTCOME GOALS SHE REMAINS SEDATED AND REQUIRING FIO2 OF 80% AND PEEP OF 8CM. OG HELD PER GI FOR ESOPHOITIS AND CLOTS NOTED VIA EGD. URINE OUTPUT ADEQUATE BUT MARINAL AT 30 TO 45 ML/HR. BRIDGETT HUGGER OFF AT 1413. MONITOR SHOWING SR TO ST.
[2020-03-11] VITALS (39 sets, daily range): BP systolic 104–173; BP diastolic 39–84
--- NOTE | 2020-03-11 07:45 | NUR ---
ASSESSMENTS CHARTED, MEDS CHARTED GIVEN, PATIENT SEDATED THROUGHOUT SHIFT, SINUS RHYTHM, COARSE/DIM ON VENTILLATOR. ET TUBE CLOTTED. PATIENT NPO DUE TO ESOPHOGEAL BLOOD CLOTS, NO OG TUBE. Q6 ACCU CHECK, ON RESTRAINTS, WOUNDS TREATED. PATIENT TURNED CHARTED. FALL PRECAUTIONS IN PLACE DURING SHIFT.
--- NOTE | 2020-03-11 08:27 | P ---
[facility] [place] [address] PROCEDURE REPORT Name: SARA FOSTER Room #: 238-P ADM IN M.R.#: [id number] Admission: 02/28/20 Attend Phys: Jim Almeida MD Discharge: Date of : 57 Report #: [id number] THIS REPORT FOR: cc: Venessa Gilmore MD, Kelly A. MD McElhinney, Christian C. MD ~ DATE OF SERVICE: 03/10/2020 PROCEDURE PERFORMED: Upper endoscopy. HISTORY OF PRESENT ILLNESS: The patient is a 65-year-old female with COVID positive pneumonia, respiratory failure in the ICU on a ventilator, sedated at this time. Apparently several days ago had episodes of hematemesis. We were consulted yesterday. Her hemoglobin on admission on 02/27 was 13.0. It has slowly trended down since the , yesterday it was 11.0, today however is 8.8. Consult was done yesterday, we were considering upper endoscopy; however, the patient did have episodes of bradycardia yesterday. Apparently, she has episodes at times. Cardiology is following. She has been on a Protonix drip. She is not on any anticoagulation therapy currently, although she was on Lovenox, which has been discontinued. Plan is for upper endoscopy today. DESCRIPTION OF PROCEDURE: The risks and benefits of the procedure were explained to the patient's family, those risks including but not limited to bleeding, perforation and the risk of sedation. She understood these risks and gave informed consent. The procedure was performed in the ICU room at the bedside. The patient is already on a ventilator at this time as well as sedated with a propofol drip. Next, using an Olympus upper endoscope, the scope was placed in the patient's mouth and advanced under direct vision through the esophagus, stomach and into the second portion of the duodenum. Upon entering the patient's mouth bright red blood was noted. This was aspirated away. Large amount of clots were noted within the esophagus, initially unable to visualize this area well, I advanced the scope into the stomach, at which point approximately 100 mL of maroon-colored liquid blood was noted. This was aspirated away. There were several clots; however, that remained in the stomach, primarily in the fundus, which did limit visualization of the areas of the gastric mucosa that were visualized. There were no abnormalities. No obvious ulcerations were noted, but visualization was limited. The pylorus was normal and patent. Old blood was noted throughout the duodenum. Several washings and aspirations were performed. No obvious ulcerations or bleeding site was noted within the duodenum. The scope was then brought back up into the patient's esophagus and several washings and aspirations were performed. I was able to more clearly visualize the esophagus. The proximal esophagus was normal; however, beginning in the mid esophagus, a severe large ulceration was noted and this extended all the way down to the GE junction with several clots, one of which was very large and broad-based. I was unable to evaluate exactly [address] [address] PROCEDURE REPORT Name: SARA FOSTER Room #: 238-P [facility] IN M.R.#: [id number] Admission: 02/28/20 Attend Phys: Jim Almeida MD Discharge: Date of : 57 Report #: [id number] where it was adherent to, another clot was noted that was smaller adherent to the wall in the ulceration, this was approximately 8 mm in diameter. There was no active bleeding noted. A small amount of maroon blood was noted throughout the esophagus. This was aspirated away. Because of the clots being on a flat large ulcerative lesion, this was not amenable to cautery or endoclip placement. I did also not perform epinephrine injection as it was difficult to tell where the large clot was adherent to and since there was no active bleeding at this time, I felt it was best to leave the clot in place. At this point, the scope was then withdrawn and the procedure terminated. The patient tolerated the procedure well. IMPRESSION: 1. Severe large ulceration involving the mid and distal esophagus with large adherent clots as described above. Difficult situation as this is not treatable with endoclip or cautery, could consider epinephrine injection at times if active bleeding, but again this is a temporizing measure. 2. Old blood within the stomach. No obvious ulcerations. 3. Duodenum was normal. RECOMMENDATIONS: 1. Continue PPI drip. 2. Avoid OG or NG tube placement at this time. 3. Recommend TPN for nutritional support. 4. Continue to monitor hemoglobin closely. 5. Avoid any anticoagulation therapy at this time. Thank you for allowing me to participate in her care. <ELECTRONICALLY SIGNED> By: Antione Muñoz MD 03/11/20 0827 [id number] [id number] Antione Muñoz MD /nt
[2020-03-11 16:30] LABS: MCH 27.7 pg (26.0-34.0); MCHC 32.1 g/dL (28.0-37.0); RBC 3.26 mil/uL (4.20-5.00); RDW 18.4 % (10.5-14.5); WBC 23.5 thou/uL (4.0-11.0)
--- NOTE | 2020-03-11 18:36 | NUR ---
GRAND SON LORI, AND PATIENT DAUGHTER UPDATED WITH PATIENT's CONDITION.
[2020-03-12] VITALS (51 sets, daily range): BP systolic 105–169; BP diastolic 37–69
[2020-03-12 00:09] LABS: ALBUMIN 1.7 g/dL (3.4-5.0); CREATININE 1.1 mg/dL (0.6-1.0); MAGNESIUM 2.5 mg/dL (1.8-2.4); PHOSPHORUS 2.7 mg/dL (2.6-4.7); POTASSIUM 4.7 mmol/L (3.5-5.1); TOTAL BILIRUBIN 0.4 mg/dL (0.2-1.0); TOTAL PROTEIN 4.3 g/dL (6.4-8.2)
[2020-03-12 04:35] LABS: BE(vivo) -2.7 mmol/L (-2 to +3); HCO3 22.3 mmol/L (22.0-26.0); PCO2 39.3 mmHg (35.0-45.0); PO2 57.6 mmHg (80.0-100.0); pH 7.372 (7.360-7.450); sO2 89.4 % (92.0-98.0)
[2020-03-12 05:13] LABS: HEMATOCRIT 29.2 % (37.0-47.0); HEMOGLOBIN 9.2 gm/dL (12.0-15.0); MCH 26.7 pg (26.0-34.0); MCHC 31.3 g/dL (28.0-37.0); MCV 85.3 fL (80.0-100.0); RBC 3.43 mil/uL (4.20-5.00); RDW 18.2 % (10.5-14.5); WBC 20.9 thou/uL (4.0-11.0)
[2020-03-12 05:19] LABS: CREATININE 1.1 mg/dL (0.6-1.0); POTASSIUM 4.5 mmol/L (3.5-5.1)
[2020-03-12 05:29] LABS: MAGNESIUM 2.6 mg/dL (1.8-2.4); PHOSPHORUS 2.2 mg/dL (2.5-4.9)
--- NOTE | 2020-03-12 06:41 | NUR ---
ASSESSMENTS CHARTED, MEDS CHARTED GIVEN, PATIENT REMAINS SEDATED, ON VENT, IN RESTRAINT, TURNS CHARTED. ON PROPOFOL AND VERSED FOR SEDATION. TPN STARTED, PROTONIX AND 1/2 NS RUNNING DURING SHIFT. FALL PRECAUTIONS IN PLACE DURING SHIFT.
--- NOTE | 2020-03-12 11:39 | NUR ---
Assumed care at 0700, assessment and vital signs completed per ICU protocol. Dr. Lee and Dr. Roger rounded this am, plan of care discussed. RN will continue to monitor.
[2020-03-13] VITALS (59 sets, daily range): BP systolic 114–167; BP diastolic 40–83
[2020-03-13 05:51] LABS: CALCIUM 8.4 mg/dL (8.5-10.1); CREATININE 1.1 mg/dL (0.6-1.0); POTASSIUM 4.8 mmol/L (3.5-5.1)
[2020-03-13 05:53] LABS: HEMATOCRIT 29.3 % (37.0-47.0); HEMOGLOBIN 9.1 gm/dL (12.0-15.0); MCH 26.7 pg (26.0-34.0); MCV 86.1 fL (80.0-100.0); RBC 3.4 mil/uL (4.20-5.00); RDW 18.5 % (10.5-14.5); WBC 19.1 thou/uL (4.0-11.0)
[2020-03-13 05:55] LABS: MAGNESIUM 2.6 mg/dL (1.8-2.4); PHOSPHORUS 2.2 mg/dL (2.6-4.7)
--- NOTE | 2020-03-13 19:02 | NUR ---
assumed care of pt at 0700. [address] Dr. CICI pruitt. stated he would like go ahead from GI to resume lovenox. 1330 updated family daughter regarding pt status. family disheartened by pt lack of progress. 1500 peep increased from 10 to 12. output adequate. hypothermic throughout the day. protonix gtt for GI ulcer. no pressers bp adequate. overall not progressing in plan of care
--- NOTE | 2020-03-13 22:15 | NUR ---
This RN spoke to Marycruz Macias, patients daughter at 2200 today. Updated on patient status and all questions answered.
[2020-03-14] VITALS (29 sets, daily range): BP systolic 106–152; BP diastolic 37–88
[2020-03-14 05:23] LABS: HEMATOCRIT 31.7 % (37.0-47.0); HEMOGLOBIN 9.7 gm/dL (12.0-15.0); MCH 26.6 pg (26.0-34.0); MCHC 30.5 g/dL (28.0-37.0); MCV 87.4 fL (80.0-100.0); RBC 3.63 mil/uL (4.20-5.00); RDW 18.9 % (10.5-14.5); WBC 19.7 thou/uL (4.0-11.0)
--- NOTE | 2020-03-14 05:30 | NUR ---
This RN spoke to Jonh, grandson, regarding patient status. All questions answered.
[2020-03-14 06:02] LABS: CALCIUM 8.5 mg/dL (8.5-10.1); CREATININE 0.9 mg/dL (0.6-1.0); MAGNESIUM 2.7 mg/dL (1.8-2.4); POTASSIUM 5.1 mmol/L (3.5-5.1)
--- NOTE | 2020-03-14 07:25 | NUR ---
Vent settings unchanged. Remains on propofol, versed and protonix gtt. TPN infusing. Restraints discontinued yesterday. Patient not progressing towards goals.
--- NOTE | 2020-03-14 10:51 | NUR ---
ASSUMMED CARE FROM THE NIGHT NUSES AT 0700. BRIDGETT HAGAN APPLIED FOR LOW TEMP AT 0800.
--- NOTE | 2020-03-14 11:42 | NUR ---
DAUGHTER, GABI CALLED IN, AND UPDATED HER ON THE PATIENT'S PROGRESS.
[2020-03-15] VITALS (22 sets, daily range): BP systolic 107–183; BP diastolic 40–68
--- NOTE | 2020-03-15 03:28 | NUR ---
PT REMAINS ON THE VENTILATOR. LUNGS ARE COARSE TO DIMINISHED. SINUS TACH NOTED ON MONITOR. COARSE TO DIMINISHED . CHACKO TO DD WITH YELLOW URINE IN CATHETER. SCD ON BILAERAL. TURN Q 2 HOURS CREAM TO COCCYX AREA DONE PER NURSING. REMAINS ON TPN AT THIS TIME PER NURSING. ENHANCEED PRCAUTIONS IN ISOLATION AT THIS TIME PER ALIE. POSITIVE COVID. NO NEW ORDERS AT THIS TIME PER NURSING. WILL CONTINUE TO ASSESS AND MONITOR PER NURSING.
[2020-03-15 04:29] LABS: CALCIUM 8.8 mg/dL (8.5-10.1); CREATININE 1.1 mg/dL (0.6-1.0); MCH 27.4 pg (26.0-34.0); MCHC 31.3 g/dL (28.0-37.0); MCV 87.3 fL (80.0-100.0); POTASSIUM 5.5 mmol/L (3.5-5.1); RBC 3.67 mil/uL (4.20-5.00); WBC 26.5 thou/uL (4.0-11.0)
[2020-03-15 08:13] LABS: MAGNESIUM 2.7 mg/dL (1.8-2.4); PHOSPHORUS 3.9 mg/dL (2.6-4.7)
--- NOTE | 2020-03-15 17:10 | NUR ---
SPOKE WITH PATIENT'S DAUGHTER, GABI, AND UPDATED HER ON HER MOTHER'S STATUS.
--- NOTE | 2020-03-15 19:00 | NUR ---
PATIENT IS NOT PROGRESSING TOWARDS OUTCOME GOALS, EXTERMITIES ARE FLACCID. SEDATION DECREASED AND ONLY SL TACHCHYNIC. REMAINS NPO, NO BLEEDING OR BLOODY EMESIS NOTED. URINE OUTPUT ADEQUATE VIA CHACKO.
[2020-03-16] VITALS (27 sets, daily range): BP systolic 113–167; BP diastolic 39–74
[2020-03-16 06:22] LABS: ALBUMIN 1.9 g/dL (3.4-5.0); CALCIUM 8.7 mg/dL (8.5-10.1); CREATININE 0.9 mg/dL (0.6-1.0); MAGNESIUM 2.4 mg/dL (1.8-2.4); PHOSPHORUS 1.5 mg/dL (2.5-4.9); POTASSIUM 4.5 mmol/L (3.5-5.1); TOTAL BILIRUBIN 0.8 mg/dL (0.2-1.0)
--- NOTE | 2020-03-16 06:44 | NUR ---
Assumed care of patient at 0000. Patient continues on sedation. Added Fentanyl for vent management. Heart rate and rhythm stable. Blood pressures stable. Continues with Ernestine hugger to maintain normothermia. Holding anticoagualation. Had to increase FIO2 to 80% to maintain adequate oxygenation. Large U/o. Labs drawn and resutls noted. Patient not progressing towards goals. see documentation on interventions for assessment detials.
[2020-03-16 11:11] LABS: HCO3 30.8 mmol/L (22.0-26.0); PCO2 66.2 mmHg (35.0-45.0); PO2 85.6 mmHg (80.0-100.0); pH 7.285 (7.360-7.450)
--- NOTE | 2020-03-16 12:53 | NUR ---
ON-GOING ASSESSMENT: CM REVIEWED CHART. PT IS COVID POSITIVE AND REMAINS ON THE VENT. PT IS UNABLE TO WEAN AT THIS TIME. CM ATTEMPTED TO REACH OUT TO PATIENTS WARNER JONES BUT UNABLE TO REACH AT THIS TIME. PER PRORGRESS NOTE PALLIATIVE CARE MAY BE CONSULTED. CM WILL CONTINUE TO OFOLLOW TO ASSIST NEEDED.
[2020-03-17] VITALS (22 sets, daily range): BP systolic 131–165; BP diastolic 31–62
[2020-03-17 06:54] LABS: CALCIUM 9.1 mg/dL (8.5-10.1); CREATININE 0.9 mg/dL (0.6-1.0); MAGNESIUM 2.6 mg/dL (1.8-2.4); PHOSPHORUS 3.4 mg/dL (2.5-4.9); POTASSIUM 5.5 mmol/L (3.5-5.1)
--- NOTE | 2020-03-17 11:09 | NUR ---
ASSUMMED CARE AT 0700 FROM JONO VILLANUEVA, PATIENT REMAINS SEDATED. WILL OPEN EYES WHEN SEDATIONS IS DECREASED AND REPOSITIONED IN BED. VENT SETTINGS UNCHANGED. WILL CONTINUE TO MONITOR.
--- NOTE | 2020-03-17 11:12 | NUR ---
SPOKE WITH PATIENT'S DAUGHTER GABI AND UPDATED HER ON THE PATIENT'S STATUS. MESSAGE LEFT WITH ESPERANZA OF INFECTIOUS DISEASE CONCERNING WHEN THE PATIENT COMES OUT OF ISOLATION.
--- NOTE | 2020-03-17 17:10 | NUR ---
SPOKE WITH DAUGHTER AT 1550 AND AGAIN REACHED OUT TO KALEB QUACH WITH NO RESPONSE MESSAGE WAS LEFT, DR GALLARDO CALLED AND RETURNED CALL AND WILL BE IN LATER TO ELVALUATE WHEN THE PATIENT CAN COME OUT OF ISOLATION. DAUGHTER CALLED BACK AND INFORMED OF PLAN OF CARE, REASSURANCE GIVEN.
--- NOTE | 2020-03-17 19:31 | NUR ---
PATIENT IS NOT PROGRESSING TOWARDS OUTCOME GOALS SHE REMAINS ON HIGH LEVELS OF O2 AND PEEP. PLEASE REFER TO ASSESSMENTS.
[2020-03-18] VITALS (32 sets, daily range): BP systolic 130–177; BP diastolic 38–65
[2020-03-18 04:42] LABS: BE(vivo) 3.8 mmol/L (-2 to +3); HCO3 32.1 mmol/L (22.0-26.0); PO2 68.4 mmHg (80.0-100.0); sO2 90.4 % (92.0-98.0)
[2020-03-18 04:43] LABS: PCO2 72.1 mmHg (35.0-45.0); pH 7.267 (7.360-7.450)
[2020-03-18 05:16] LABS: MAGNESIUM 2.7 mg/dL (1.8-2.4); PHOSPHORUS 2.5 mg/dL (2.5-4.9)
--- NOTE | 2020-03-18 19:15 | NUR ---
Patient not progressing towards plan of care as evidenced by continued need for support of ventilator. Patients family expressed they would like to see patient if she could be taken out of isolation. Plan of care is to continue to monitor patient status.
[2020-03-19] VITALS (31 sets, daily range): BP systolic 129–168; BP diastolic 39–65
--- NOTE | 2020-03-19 02:31 | NUR ---
PATIENT INTUBATED/SEDATED. L/S CLEAR/DIM. OPENS EYES DURING REPOSITIONING, PUPILS REACTIVE, B/S HYPOACTIVE, ABDOMEN ROUND WITH 3+GENERALIZED EDEMA.VSS, AFEBRILE, UOP ADEQUATE, NO BM AT THIS TIME.GRANDSON HERE VISITING, NO CONCERNS VOICED. DAUGHTER GABI COFFEY CALLED, UPDATED ON PATIENT'S CONDITION, VS, AND PT'S HIGH OXYGEN NEEDS AND VENT SETTINGS. ALL QUESTIONS ANSWERED. ROUNDED ON PATIENT. CYCLE THRESHOLD NUMBER FROM [facility] RESENT COVID-19 PCR RUN: CT 475/520, 32.4/33.8 CALLED TO PER ORDERS.
[2020-03-19 06:23] LABS: CALCIUM 9.4 mg/dL (8.5-10.1); CREATININE 0.8 mg/dL (0.6-1.0); MAGNESIUM 2.4 mg/dL (1.8-2.4); POTASSIUM 5.1 mmol/L (3.5-5.1)
[2020-03-19 08:23] LABS: HEMATOCRIT 26.6 % (37.0-47.0); HEMOGLOBIN 8.2 gm/dL (12.0-15.0); MCH 26.9 pg (26.0-34.0); MCHC 30.7 g/dL (28.0-37.0); MCV 87.8 fL (80.0-100.0); RBC 3.03 mil/uL (4.20-5.00); RDW 19.1 % (10.5-14.5); WBC 16.8 thou/uL (4.0-11.0)
[2020-03-19 09:44] LABS: BE(vivo) 6.4 mmol/L (-2 to +3); HCO3 32.5 mmol/L (22.0-26.0); PCO2 55.9 mmHg (35.0-45.0); PO2 65.3 mmHg (80.0-100.0); pH 7.382 (7.360-7.450); sO2 92.1 % (92.0-98.0)
--- NOTE | 2020-03-19 14:33 | NUR ---
1433- Nurse talked with patients daughter, Marycruz Macias, and updated her on patient status and plan of care. Her questions were answered. Her goal is to come up and see her mom.
--- NOTE | 2020-03-19 16:31 | NUR ---
Patient not progressing towards plan of care as evidenced by continued need for ventilator, without weaning, at this time. Patient plan of care is to continue to monitor patients assessments q2-4 hours, and vital signs q1 hour.
--- NOTE | 2020-03-19 18:44 | NUR ---
NURSE UPDATED PATIENTS DAUGHTER, GABI, IN REGARDS TO PATIENT OUT OF ISOLATION AND MOVING TO POD [address] TON[address]. ALSO EXPRESSED THAT DR[address] BERTRAND SAID HE COULD TALK WITH HER TOMORROW BETWEEN [phone] IF SHE IS UP HERE VISITING. NURSE EXPRESSED TO JUST LET OUR STAFF KNOW WHAT TIME SHE IS ABLE TO COME VISIT, IF WEATHER PERMITTING.
[2020-03-20] VITALS (27 sets, daily range): BP systolic 133–179; BP diastolic 39–109
[2020-03-20 05:07] LABS: BE(vivo) 3.9 mmol/L (-2 to +3); PCO2 55.9 mmHg (35.0-45.0); PO2 74.3 mmHg (80.0-100.0); pH 7.348 (7.360-7.450); sO2 93.9 % (92.0-98.0)
[2020-03-20 06:21] LABS: HEMOGLOBIN 7.4 gm/dL (12.0-15.0); MCV 88.1 fL (80.0-100.0); PLATELET COUNT 44 thou/uL (150-400)
[2020-03-20 06:22] LABS: HEMATOCRIT 23.6 % (37.0-47.0); MCH 27.6 pg (26.0-34.0); MCHC 31.3 g/dL (28.0-37.0); RBC 2.68 mil/uL (4.20-5.00); RDW 19.8 % (10.5-14.5); WBC 14.3 thou/uL (4.0-11.0)
[2020-03-20 06:32] LABS: MAGNESIUM 2.5 mg/dL (1.8-2.4)
[2020-03-20 06:38] LABS: CALCIUM 8.8 mg/dL (8.5-10.1); CREATININE 0.8 mg/dL (0.6-1.0); POTASSIUM 5.4 mmol/L (3.5-5.1); TOTAL BILIRUBIN 1.6 mg/dL (0.2-1.0); TOTAL PROTEIN 4.6 g/dL (6.4-8.2)
--- NOTE | 2020-03-20 10:00 | NUR ---
ASSUMED CARE OF THE PATIENT AT 0700. DR. PIÑA AT BEDSIDE AT 1000. HE WOULD LIKE TO SEE THE PATIENT MOVED TO POD 3 SO THAT FAMILY CAN COME AND SEE HER AND HOPEFULLY MOVE TOWARDS MAKING HER A DNR.
[2020-03-20 10:57] LABS: ABSOLUTE NEUTROPHILS 13.6 thou/uL (1.4-8.2); NUCLEATED RBCS 1 /100WBC; PLATELET ESTIMATE DECREASED
[2020-03-20 10:59] LABS: ANISOCYTOSIS 1+
[2020-03-21] VITALS (47 sets, daily range): BP systolic 96–167; BP diastolic 25–70
[2020-03-21 10:05] LABS: HEMATOCRIT 22.4 % (37.0-47.0); MCH 27.9 pg (26.0-34.0); MCHC 31.2 g/dL (28.0-37.0); MCV 89.2 fL (80.0-100.0); RBC 2.51 mil/uL (4.20-5.00); RDW 19.8 % (10.5-14.5); WBC 16.9 thou/uL (4.0-11.0)
[2020-03-21 11:17] LABS: CALCIUM 8.7 mg/dL (8.5-10.1); MAGNESIUM 2.4 mg/dL (1.8-2.4)
[2020-03-21 11:26] LABS: POTASSIUM 6.5 mmol/L (3.5-5.1)
--- NOTE | 2020-03-21 19:54 | NUR ---
ON THE VENT AND SEDATED, CONTINUES TO USE HIGH FIO2 AND PEEP SO UNABLE TO WEAN. VITALS STABLE. TPN FOR NUTRITION. CRITICAL K+ REPORTED TO DR. PIÑA AND NURSING EDUCATOR CONSULTED. ORDERS ACKNOWLEDGED AND EXECUTED. RECEIVED CALL FROM PATIENT'S DAUGHTER AND GRANDSON AND WERE UPDATED AND PER DR. PIÑA, HE ALSO UPDATED THE PATIENT'S DAUGHTER OVER THE PHONE. LATER THIS AFTERNOON I RECEIVED A CALL FROM PATIENT'S GRANDSON MIKE WHO STATED THAT FAMILY HAD DECIDED TO CHANGE PATIENT'S STATUS TO DNR, DR. PIÑA NOTIFIED. I ASLO CALLED THE DAUGHTER TO CONFIRM WITH THE KNOWLEDGE THAT SHE WAS ON LISTED DPOA, THE DAUGHTER CONFIRMED THIS WAS THE CASE AND THIS INFO WAS WITNESSED BY FAYE ALAS RN. I PAGED DR. PIÑA AGAIN WITH THIS INFORMATION AND HE STATED HE WOULD PUT ORDERS IN [facility]. LATER DR. PIÑA CALLED AND STATED HE TALKED WITH THE DAUGHTER AND ORDERS WERE PLACED, HE ALSO REQUESTED FOR PATIENT TO BE MOVED TO A ROOM WHERE DAUGHTER COULD COME VISIT, HE HAD ALREADY LEFT A MESSAGE WITH ASSISTANT NEWS DIRECTOR'S VOICEMAIL.THIS WAS ARRANGED AND PATIET WILL BE MOVED TO POD 3. REPORT GIVEN TO RICH FLORES.
[2020-03-21 20:49] LABS: PROT/CREAT RATIO 1.6; URINE PROTEIN-RANDOM* 33.5 mg/dL (<11.9)
[2020-03-21 21:21] LABS: ABSOLUTE RETIC COUNT 0.1176 10^6/uL; OBSERVED RETIC COUNT 4.63 % (0.6-2.6)
[2020-03-21 21:24] LABS: APTT 21.1 Seconds (24.5-32.8); FIBRINOGEN 281.8 mg/dL (210-360); INR 1.1
[2020-03-21 21:26] LABS: ALBUMIN 2.2 g/dL (3.4-5.0); DIRECT BILIRUBIN 1.3 mg/dL (<0.1-0.2); POTASSIUM 5.8 mmol/L (3.5-5.1); TOTAL BILIRUBIN 1.4 mg/dL (0.2-1.0); TOTAL PROTEIN 4.9 g/dL (6.4-8.2)
[2020-03-21 21:32] LABS: D-DIMER 26.78 ug/mLFEU (0.19-0.50)
[2020-03-22] VITALS (35 sets, daily range): BP systolic 88–141; BP diastolic 27–59
[2020-03-22 04:12] LABS: BE(vivo) -1.8 mmol/L (-2 to +3); HCO3 24.8 mmol/L (22.0-26.0); PCO2 52.7 mmHg (35.0-45.0); PO2 70.2 mmHg (80.0-100.0)
[2020-03-22 05:09] LABS: EOSINOPHILS 0.1 % (0.0-3.0); HEMATOCRIT 21.7 % (37.0-47.0); HEMOGLOBIN 6.7 gm/dL (12.0-15.0); MCH 27.7 pg (26.0-34.0); MCHC 30.9 g/dL (28.0-37.0); MCV 89.6 fL (80.0-100.0)
[2020-03-22 05:11] LABS: ABSOLUTE NEUTROPHILS 18.2 thou/uL (1.4-8.2); BASOPHILS 0.5 % (0.0-2.0); LYMPHOCYTES 1.4 % (24.0-44.0); PLATELET COUNT 46 thou/uL (150-400); RBC 2.42 mil/uL (4.20-5.00); RDW 20.3 % (10.5-14.5); WBC 18.7 thou/uL (4.0-11.0)
[2020-03-22 05:21] LABS: APTT 20.5 Seconds (24.5-32.8); PROTIME 10.7 Seconds (9.3-11.4)
[2020-03-22 05:26] LABS: ALBUMIN 2.2 g/dL (3.4-5.0); CALCIUM 8.7 mg/dL (8.5-10.1); CREATININE 2.4 mg/dL (0.6-1.0); MAGNESIUM 2.3 mg/dL (1.8-2.4); PHOSPHORUS 5.2 mg/dL (2.5-4.9); POTASSIUM 5.9 mmol/L (3.5-5.1); TOTAL BILIRUBIN 1.2 mg/dL (0.2-1.0); TOTAL PROTEIN 4.8 g/dL (6.4-8.2)
--- NOTE | 2020-03-22 19:58 | NUR ---
0700 ASSUMED CARE OF PT. 0900 1X DOSE LASIX GIVEN PER RENAL. ADEQUATE OUTPUT THROUGHOUT SHIFT. 1235 ORDER FOR NEW CHACKO PER RENAL. CHACKO INSERTED 1300. FAMILY AT BEDSIDE [id number]. LEVOPHED INITIATED FOR MAPS <60. PT REMAINS AFEBRILE. NO BM. PROGRESSING IN PLAN OF CARE.
[2020-03-23] VITALS (35 sets, daily range): BP systolic 104–148; BP diastolic 33–54
[2020-03-23 07:10] LABS: ALBUMIN 2.1 g/dL (3.4-5.0); CALCIUM 8.5 mg/dL (8.5-10.1); POTASSIUM 5.3 mmol/L (3.5-5.1)
--- NOTE | 2020-03-23 07:37 | NUR ---
ASSUMED PT CARE AT 1900. VSS, PT INTUBATED AND SEDATED ON PROPOFOL, FENTANYL AND VERSED. SEDATION VACATIN FOR 10 MINUTES, PT OPENS EYES TO PAIN VIA STERNAL RUB, DOESNT ELICIT ANY OTHER RESPONSE. BATH THIS SHIFT. PT IS STABLE. NO SIGNIFICANT CHANGES OVER NOC. WILL CONTINUE TO MONITOR PER POC
--- NOTE | 2020-03-23 17:53 | NUR ---
PT INTUBATED AND SEDATED. FIO2 TITRATED DOWN TO 80% BY RT. NO SEDATION VACATION DUE TO HIGH PEEP/FIO2. LEVOPHED GTT FOR BP SUPPORT. NO OG TUBE PER GI. AFEBRILE, NO BM, ADEQUATE UOP, TPN INFUSING. 1 UNIT OF PRBC GIVEN. NO REACTION NOTED. PT AND FAMILY HAVE BEEN UPDATED AND EDUCATED ON PT CONDITION AND POC. PT NOT PROGRESSING TOWARDS POC.
[2020-03-24] VITALS (30 sets, daily range): BP systolic 108–162; BP diastolic 31–74
--- NOTE | 2020-03-24 05:04 | NUR ---
CARE ASSUMED 1900. PT SEDATED. DOES NOT FOLLOW COMMANDS. RESPONDS TO PAINFUL STIMULI. GAP REFLEX DIMINISHED, MINIMAL ORAL SECRETIONS. PT HGB AFTER BEING TRANSFUSED DURING DAYSHIFT WAS 9.0. NO APPARENT PAIN. FAMILY UPDATED ABOUT PY CONDITION AND TRANSFUSION. ASSESSMENTS DOCUMENTED. NO TITRATION ON PT SEDATIONS OR VENT SETTINGS. NO NEW CONCERNS AT THIS TIME, NO EVENTSM, VITALS STABLE. FAMILY WOULD LIKE AN UPDATE FROM THE PHYSICIAN. WILL CONTINUE WITH POC.
[2020-03-24 06:24] LABS: HEMATOCRIT 29.1 % (37.0-47.0); HEMOGLOBIN 9.2 gm/dL (12.0-15.0); MCH 28.7 pg (26.0-34.0); MCHC 31.5 g/dL (28.0-37.0); MCV 91.2 fL (80.0-100.0); RBC 3.19 mil/uL (4.20-5.00); RDW 20.8 % (10.5-14.5); WBC 14.1 thou/uL (4.0-11.0)
[2020-03-24 06:51] LABS: ALBUMIN 2.3 g/dL (3.4-5.0); CALCIUM 9.2 mg/dL (8.5-10.1); CREATININE 1.5 mg/dL (0.6-1.0); PHOSPHORUS 3.9 mg/dL (2.5-4.9); POTASSIUM 4.6 mmol/L (3.5-5.1)
--- NOTE | 2020-03-24 15:51 | NUR ---
THIS HOGSHEAD MAT INSPECTOR MET THE PATIENT'S DAUGHTER WHILE SHE WAS VISITING HER MOTHER IN ICU. SHE WAS PLEASANT AND SPOKE LIKE EVERYTHING WAS GOING WELL. WE CONCLUDED IN PRAYER.
--- NOTE | 2020-03-24 19:00 | NUR ---
daughter, dpoa present for several hours today including when sedation vacation performed. described lack of responses to deep pain, sternal rub, noxious stimuli. pt's only response is spontaneous fluttering of eyes that increases with stimulation. stimulation increases eye fluttering. no purposeful by opening eyes to command. levophed slowly increased to 4 mcg/min to keep sbp>65. not progressing.
[2020-03-25] VITALS (69 sets, daily range): BP systolic 98–149; BP diastolic 30–59
--- NOTE | 2020-03-25 07:17 | NUR ---
ASSUMED PT CARE AT 1900. VSS. PT INTUBATED AND SEDATED ON PROPOFOL, VERSED & FENTANYL AGONAL BREATHING NOTED. WENT UP ON FIO2 FROM 75% TO 85%. PT STABLE. NO SIGNIFICANT CHANGES OVER NOC, WILL CONTINUE TO MONIOR PER POC
[2020-03-25 08:05] LABS: HEMATOCRIT 28.9 % (37.0-47.0); HEMOGLOBIN 9.2 gm/dL (12.0-15.0); MCH 29.4 pg (26.0-34.0); MCHC 31.9 g/dL (28.0-37.0); MCV 92.1 fL (80.0-100.0); RBC 3.14 mil/uL (4.20-5.00); RDW 21.9 % (10.5-14.5); WBC 10.8 thou/uL (4.0-11.0)
[2020-03-25 08:18] LABS: CALCIUM 9.7 mg/dL (8.5-10.1); CREATININE 1.4 mg/dL (0.6-1.0); POTASSIUM 4.7 mmol/L (3.5-5.1)
--- NOTE | 2020-03-25 11:00 | NUR ---
>>>>>>>>>> Dr. Roger present to round at 1000. updated on pt status including temp low during night so gal hugger placed and fio2 up to 85% to maintain 02 sat. levo titrated to keep map>65, currently 8 mcg/min. >>>>>>>>>> Dr. Almeida present to round. Updated on pt status.
--- NOTE | 2020-03-25 13:07 | NUR ---
PT'S DAUGHTER CALLED AT [address] TO SPEAK TO DR[address] NGO. I PAGED DR. NGO AND SPOKE TO HIM AT 1305 TO RELAY THE MESSAGE
--- NOTE | 2020-03-25 18:22 | NUR ---
daughter- Marycruz Macias present for several hours. updated on pt status including assessment demonstrating pt responses to reflexes- corneal reflex, sternal rub, deep pain, plantar reflex. minimal gag reflex. low temp during night required use of warming blanket, increase in fi02-85% and increase in levophed to maintain bp. rn discussed option for comfort care/compassionate extubation. answered questions to satisfaction. continuing current plan of care. requested her to notify staff with any further questions, concerns or change in plan of care.
[2020-03-26] VITALS (47 sets, daily range): BP systolic 110–161; BP diastolic 37–68
[2020-03-26 05:25] LABS: HEMOGLOBIN 8.7 gm/dL (12.0-15.0); MCH 29.6 pg (26.0-34.0); MCHC 32.2 g/dL (28.0-37.0); MCV 91.8 fL (80.0-100.0); RBC 2.94 mil/uL (4.20-5.00); RDW 23.5 % (10.5-14.5); WBC 7.6 thou/uL (4.0-11.0)
[2020-03-26 06:00] LABS: CALCIUM 9.5 mg/dL (8.5-10.1); CREATININE 1.3 mg/dL (0.6-1.0); POTASSIUM 4.8 mmol/L (3.5-5.1)
--- NOTE | 2020-03-26 10:37 | NUR ---
PATIENT REMAINS INTUBATED/SEDATED ON VERSED AND FENTANYL GTT FOR VENT MANAGEMENT. NO COUGH OR GAG PRESENT. DOES NOT REACT TO PAINFUL STIMULI. TITRATING DOWN ON LEVOPHED GTT. GOAL TO MAINTAIN MAP >65. WAITING FOR PHYSICIAN TO ROUND TO DISCUSS FURTHER PLAN OF CARE. NO FAMILY PRESENT AT THIS MOMENT.
--- NOTE | 2020-03-26 15:08 | NUR ---
DR. BOLANOS ROUNDED. NO NEW ORDERS. CONTINUE CARE. NO PROGRESS IN PATIENT STATUS, REMAINS ON HIGH SUPPORT ON VENT. DAUGHTER CURRENTLY AT BEDSIDE, NO QUESTIONS OR CONCERNS.
[2020-03-27] VITALS (72 sets, daily range): BP systolic 106–173; BP diastolic 44–72
[2020-03-27 05:34] LABS: CALCIUM 9.4 mg/dL (8.5-10.1); CREATININE 1.7 mg/dL (0.6-1.0); MAGNESIUM 2.2 mg/dL (1.8-2.4); PHOSPHORUS 2.9 mg/dL (2.5-4.9); POTASSIUM 4.7 mmol/L (3.5-5.1)
[2020-03-27 09:04] LABS: BE(vivo) 1.8 mmol/L (-2 to +3); HCO3 28.7 mmol/L (22.0-26.0); PCO2 57.1 mmHg (35.0-45.0); PO2 57.7 mmHg (80.0-100.0); pH 7.319 (7.360-7.450); sO2 87.2 % (92.0-98.0)
--- NOTE | 2020-03-27 16:43 | NUR ---
Pt remains on vent FIO2 90%. PEEP 14. Staff had spoken with pt's dtr and she is considerinig palliative extubation. Staff awaiting her decision. cm following.
--- NOTE | 2020-03-27 19:30 | NUR ---
1500 PT'S DAUGHTER AT BEDSIDE AND UPDATED. SHE STATES SHE IS HAVING A HARD TIME MAKING DECISION ABOUT PALLATIVE CARE VS TRACH. 1800. LARGE AMOUNT OF LEAKING AROUND CHACKO. CHACKO REPLACED AND DRAINED 900ML FOLLOWING. REMAINS SEDATED WITH VERSED AND FENT GTTS TODAY. UNABLE TO TOLERATE SEDATION VACATION. PT DESATS QUICKLY WHEN HER HEAD IS DOWN/TURNS.
[2020-03-28] VITALS (30 sets, daily range): BP systolic 106–134; BP diastolic 43–61
--- NOTE | 2020-03-28 13:57 | NUR ---
ASSUMED CARE OF PT AT 0700. DR. BERTRAND AT BEDSIDE AT 0830, NO NEW ORDERS GIVEN DR. NGO AT BEDSIDE AT 1030, NO NEW ORDERS GIVEN DAUGHTER AT BEDSIDE AT 1230. SHE IS STILL UNDER THE BELIEFS THAT HER MOTHER IS GOING TO GET BETTER.
[2020-03-29] VITALS (32 sets, daily range): BP systolic 97–143; BP diastolic 44–62
--- NOTE | 2020-03-29 04:17 | NUR ---
ASSESSMENT: PT RESPONDS TO PAINFUL STIMULI. DOES OPEN EYES BUT DO NOT TRACK. DOES NOT MOVE EXTREMITIES. PT HAS A LOW GRADE TEMP WITH MAX BEING 95. UO ADEQUATE, OCCASSIONAL IRRIGATION OF TUBE TO CLEAR SEDIMENT. BATH GIVEN, NO BM. VERSED AND FENTANYL CONTINUES ALONG WITH TPN. SR-SB PER MONITOR. 2 FINGER NAILS POPPED OFF DURING BATH THIS SHIFT. VENT SETTING UNCHANGED: FIO2 80%, PEEP 14, TV 500, AND RATE 28. MINMAL SUCTIONING FOR ETT, SCANT AMTS OF THIN, TANNISH SECRETIONS NOTED. NOT MUCH SUCTIONING PER MOUTH. PT'S DAUGHTER DID NOT CALL WITH ANY QUESTIONS THIS SHIFT. LEFT IJ PATENT AND INTACT. POOR-NO PROGRESS TOWARDS DC GOALS. WILL CONTINUE TO MONITOR.
[2020-03-29 04:52] LABS: WBC 4.3 thou/uL (4.0-11.0)
[2020-03-29 04:53] LABS: BE(vivo) 3.1 mmol/L (-2 to +3); HCO3 30.5 mmol/L (22.0-26.0); PCO2 63.2 mmHg (35.0-45.0); PO2 71.5 mmHg (80.0-100.0); sO2 92.3 % (92.0-98.0)
[2020-03-29 04:54] LABS: pH 7.302 (7.360-7.450)
[2020-03-29 04:55] LABS: HEMOGLOBIN 9.1 gm/dL (12.0-15.0); MCH 29.7 pg (26.0-34.0); MCHC 31.4 g/dL (28.0-37.0); MCV 94.6 fL (80.0-100.0); PLATELET COUNT 133 thou/uL (150-400); RBC 3.07 mil/uL (4.20-5.00); RDW 23.2 % (10.5-14.5)
[2020-03-29 05:06] LABS: ALBUMIN 2.2 g/dL (3.4-5.0); CALCIUM 9.8 mg/dL (8.5-10.1); CREATININE 1.5 mg/dL (0.6-1.0); POTASSIUM 3.7 mmol/L (3.5-5.1); TOTAL BILIRUBIN 0.6 mg/dL (0.2-1.0); TOTAL PROTEIN 5.4 g/dL (6.4-8.2)
[2020-03-29 06:04] LABS: ABSOLUTE NEUTROPHILS 3.7 thou/uL (1.4-8.2); METAMYELOCYTES 2 %; MYELOCYTES 1 %; NUCLEATED RBCS 1 /100WBC
[2020-03-29 06:07] LABS: LARGE PLATELETS OCCASIONAL
[2020-03-29 06:08] LABS: ANISOCYTOSIS 3+; POLYCHROMASIA 1+
--- NOTE | 2020-03-29 06:36 | NUR ---
0500: Mary KATZ WAS NOTIFIED OF CRITICAL LOW PH = 7.302. NO NEW ORDERS WERE GIVEN. VENT SETTINGS UNCHANGED.
--- NOTE | 2020-03-29 16:11 | NUR ---
DAUGHTER ARRIVED AROUND 1PM AND ASKED TO SPEAK TO DR. NGO OR DR. BOSS. PAGED DR. NGO AND HE SPOKE WITH DAUGHTER AT LENGTH OVER PPHONE. LATER THIS NURSE SPOKE WITH DAUGHTER AT LENGTH AND ANSWERED QUESTIONS SHE HAD ABOUT THE PROCESS OF WITHDRAWING CARE. NO DECISION HAS BEEN MADE.
[2020-03-30] VITALS (21 sets, daily range): BP systolic 113–150; BP diastolic 45–58
--- NOTE | 2020-03-30 04:25 | NUR ---
ASSUMED PT CARE AT 1900. VSS. PT SEDATED ON FENTANYL AND VERSED. OPENS WITH WITH SUCTION. -VE GAG REFLEX. DOESNT FOLLOW COMMANDS OR TRACK WITH EYES. PT IS STABLE, NO SIGNIFICANT CHANGES OVER NOC. WILL CONTINUE TO MONITOR PER POC.
[2020-03-31] VITALS (52 sets, daily range): BP systolic 122–201; BP diastolic 54–87
--- NOTE | 2020-03-31 00:48 | NUR ---
This RN to bedside at 1900. Spoke to Jonh, family member regarding patient status. Unable to wean FiO2 down to 80%. Patient not progressig towards goals. Unable to weigh patient due to bed error. Will continue to monitor.
--- NOTE | 2020-03-31 04:44 | NUR ---
Attempted to wean FiO2 down from 90 to 80%. Patient did not tolerate and desatted to 87%. Patient remained on 90% throughout night. Still on Versed and Fentanyl gtt for ventilation management. Not progressing towards goals.
--- NOTE | 2020-03-31 09:49 | NUR ---
Spoke at length with Daughter Tereza Dudley [phone] states she is going to proceed with the palliative extubation and is making plans for family to come in town and is also working around her son's upcoming surgery. Daughter states she completely understands that this must happen and is committed to making sure he mother can pass in peace with a palliative extubation but given family and family dynamics that are involved it will be in a week or so. Told daughter and gave her my full name and direct phone number so once she has a date to call me and I will coordinate a time for all that need to be involved. Spoke with attending and explained above. Case Management will continue to follow.
--- NOTE | 2020-03-31 15:13 | NUR ---
DAUGHTER JESSICA AT BEDSIDE. THIS RN APPROACHED DAUGHTER REGARDING HER CONVERSATION WITH DR. BOSS YESTERDAY. PER DAUGHTER, PLAN TO TAKE COMFORT CARE MEASURES ON MONDAY. THANH LOPEZ IS IN CONTACT WITH CASE MANGBRITTANY GÓMEZ REGARDING VISITATION POLICY. DAUGHTER JESSICA WAS MADE AWARE ABOUT ONE PERSON DESIGNATED VISITATION POLICY. CAR DUMPER OPERATOR ISABELLA WAS MADE AWARE OF THE SITUATION.
--- NOTE | 2020-03-31 16:03 | NUR ---
Daughter Tereza Maldonado came to my office and stated after discussing with her family they have chosen 04-04-20 to palliatively extubate the patient. Daughter inquired on other family to visit prior to 04-04-20. Told daughter I would need to check with others given the end of life issues coupled with current hospital policy and would let her know a decision. Have reached out to Dr. Sal, Dr. Almeida and Dr. Gaston to inform of family's decision. Have notified RT. Awaiting clarification on isolation status and will contact daughter and notify all parties once a confirmed unified plan on visitation has been made. Case Management will continue to follow.
[2020-04-01] VITALS (58 sets, daily range): BP systolic 107–195; BP diastolic 43–83
--- NOTE | 2020-04-01 06:14 | NUR ---
No vent setting changes. Remains on fentanyl and versed gtt for vent management. Vital signs signs stable and urine output adequate. Not progressing towards goals.
--- NOTE | 2020-04-01 14:50 | NUR ---
Spoke with Daughter Tereza Dudley [phone] to give visitation parameters for Monday04-04-20 as this is day she has agreed to palliative extubation. Upon clarification with the National Account Executive on this date only 2-visitors at a time will be allowed in the patient room for a brief period of time. Then one other set of 2 visitors will be allowed in the room. Making a total of 4-visitors only on this date. Have confirmed with Infectious Disease that patient is currently our of isolation. Daughter did understand that this is for Monday the only and told her I would note this conversation in the medical record as well as to alert the Remedy Developer. CM will continue to follow for any questions of concerns.
[2020-04-02] VITALS (31 sets, daily range): BP systolic 127–180; BP diastolic 47–74
[2020-04-02 04:04] LABS: HCO3 37.2 mmol/L (22.0-26.0); PCO2 67.3 mmHg (35.0-45.0); PO2 65.4 mmHg (80.0-100.0); sO2 91.3 % (92.0-98.0)
[2020-04-02 05:58] LABS: HEMATOCRIT 27.3 % (37.0-47.0); HEMOGLOBIN 8.5 gm/dL (12.0-15.0); MCHC 31.2 g/dL (28.0-37.0); MCV 96.1 fL (80.0-100.0); PLATELET COUNT 125 thou/uL (150-400); RBC 2.84 mil/uL (4.20-5.00); RDW 23.6 % (10.5-14.5); WBC 8.5 thou/uL (4.0-11.0)
[2020-04-02 06:11] LABS: ALBUMIN 2.2 g/dL (3.4-5.0); CALCIUM 10.5 mg/dL (8.5-10.1); CREATININE 1.2 mg/dL (0.6-1.0); POTASSIUM 3.9 mmol/L (3.5-5.1); TOTAL BILIRUBIN 0.7 mg/dL (0.2-1.0); TOTAL PROTEIN 5.8 g/dL (6.4-8.2)
--- NOTE | 2020-04-02 07:30 | NUR ---
No changes overnight. Pt's grandson visited x1 this shift.
[2020-04-02 09:43] LABS: ABSOLUTE NEUTROPHILS 7.7 thou/uL (1.4-8.2); METAMYELOCYTES 1 %; NUCLEATED RBCS 1 /100WBC; PLATELET ESTIMATE NORMAL
[2020-04-02 09:44] LABS: ANISOCYTOSIS 2+
--- NOTE | 2020-04-02 14:18 | NUR ---
ASSUMED CARE AT 0700, ASSESSMENT AND VITAL SIGNS COMPLETE PER ICU PROTOCOL. PT'S DAUGHTER, GABI, IS BEDSIDE, RN PROVIDED UPDATE. DR. NGO CAME AND SPOKE TO GABI. RN WILL CONTINUE TO MONITOR.
[2020-04-03] VITALS (30 sets, daily range): BP systolic 117–176; BP diastolic 45–79
--- NOTE | 2020-04-03 06:42 | NUR ---
ASSUMED OT CARE AT 1900. VSS. PT ON 100% FIO2 WITH 14 OF PEEP. SATS OF 92%. PT HAS -VE COUGH/GAG, MIMINAL EYE OPENING TO PAIN. PT DESATURATED TO MIN OF 84% THIS SHIFT, PT SUCTIONED, SAT PROBE CHANGED, PT SATS CONSISITENTLY BETWEEN 88-91%. U/O TOTAL OF 225 THIS SHIFT. NO OTHER ACUTE CHANGES.
--- NOTE | 2020-04-03 12:56 | NUR ---
0800 O2 SATS DECREASE TO 83% FOLLOWING REPOSITIONING. APPROX 30 MINUTES FOR PATIENT TO RECOVER TO SAT >90%. PT REMAINS ON 100% AND [address] BOLANOS UPDATED. SEDATED WITH FENT/VERSED TODAY. UNABLE TO TOLERATE SEDATION VACATION. WILL CONTINUE TO MONITOR PATIENT.
--- NOTE | 2020-04-03 15:58 | NUR ---
1500 PT'S DAUGHTER AT BEDSIDE AND UPDATED.
[2020-04-04] VITALS (31 sets, daily range): BP systolic 102–129; BP diastolic 43–62
--- NOTE | 2020-04-04 01:55 | NUR ---
Unable to weigh patient, bed malfunction.
[2020-04-04 04:25] LABS: HEMATOCRIT 27.8 % (37.0-47.0); HEMOGLOBIN 8.4 gm/dL (12.0-15.0); MCH 30.1 pg (26.0-34.0); MCHC 30.2 g/dL (28.0-37.0); MCV 99.9 fL (80.0-100.0); RBC 2.78 mil/uL (4.20-5.00); RDW 24.1 % (10.5-14.5); WBC 6.5 thou/uL (4.0-11.0)
[2020-04-04 04:33] LABS: CALCIUM 10.8 mg/dL (8.5-10.1); CREATININE 1.7 mg/dL (0.6-1.0); POTASSIUM 3.7 mmol/L (3.5-5.1)
--- NOTE | 2020-04-04 10:33 | NUR ---
Assumed care at 0700, assessment and vital signs completed per ICU protocol. RN will continue to monitor.
--- NOTE | 2020-04-04 22:32 | NUR ---
Pt's blood sugar 335 at 2215 despite stopping D5W maintenance fluid and getting scheduled Lantus and very high dose sliding scale. Insulin gtt started at 2230 at rate of 15 units/hr; will check blood sugar hourly and adjust as needed to keep blood sugar betwen 90-150.
--- NOTE | 2020-04-04 23:48 | NUR ---
Pt's GCS was 4 at 1999 assessment. MTN notified at 2340 per protocol. MTN plans to follow.
[2020-04-05] VITALS (92 sets, daily range): BP systolic 82–185; BP diastolic 23–57
[2020-04-05 04:46] LABS: MCH 30.2 pg (26.0-34.0)
[2020-04-05 04:50] LABS: HEMATOCRIT 27.5 % (37.0-47.0); HEMOGLOBIN 8.4 gm/dL (12.0-15.0); MCHC 30.7 g/dL (28.0-37.0); MCV 98.5 fL (80.0-100.0); RBC 2.79 mil/uL (4.20-5.00); RDW 22.9 % (10.5-14.5); WBC 8.9 thou/uL (4.0-11.0)
[2020-04-05 05:24] LABS: ALBUMIN 1.4 g/dL (3.4-5.0); CALCIUM 10.3 mg/dL (8.5-10.1); CREATININE 1.8 mg/dL (0.6-1.0); MAGNESIUM 1.9 mg/dL (1.8-2.4); PHOSPHORUS 3.3 mg/dL (2.5-4.9); POTASSIUM 3.8 mmol/L (3.5-5.1); TOTAL PROTEIN 5.5 g/dL (6.4-8.2)
--- NOTE | 2020-04-05 06:28 | NUR ---
Pt's urine output remains marginal, only 225 cc out for this shift. Systolic blood pressure dropped into 80's with MAP in low 50's around 0500. Quad strength Levophed gtt started and titrated to keep SBP > 90/ MAP > 60. Insulin gtt titrated to keep blood sugar between 90-150. Insulin gtt turned off at 0600 for blood sugar of 98. Unable to weight pt this a.m. due to bed malfunction. Minimal turning due to pt dropping O2 sat into 80's with turns.
--- NOTE | 2020-04-05 17:30 | NUR ---
pt's daughter called by RN to notify her of her mother's oxygen saturation being low- sa02 85-86%. continued to inform her we have done everything to keep her oxygen saturation up. daughter stated that she is unable to be present tonight since visiting hours are over. she continued, then requested notification if her saturation becomes lower. affirmed we would notify her.
--- NOTE | 2020-04-05 23:54 | NUR ---
ASSUMED PT CARE AT 1900. PT ON QUAD STRENGHT LEVO.AT 26, THIS RN TURNED LEVO UP TP 30MCG PT MAP WAS IB THE 40s. RN NOTIFIED GABI; PT'S DTR ABT PT'S VITAL SIGNS OF 02 SAT 74%, BP 98/28 WITH MAP OF 47, DECREASED U/O AND PT'S GCS OF 3 AT 2228. PT'S DTR ASKED IS SHE COULD COME UP TO SEE PT, I TOLD HE SHE COULD COME FOR 20 MINUTES (PER RAJENDRA FRANCE AT 2236). PT'S DTR SAID AT 2250 "I CANT COME UP FOR 20 MINUTES, IF SOMETHING HAPPENS THROUGH THE NIGHT YOU ARE JUST GONNA HAVE TO CALL ME" NO SIGNIFICANT CHANGES IN PT STATUS, WILL CONTINUE TO MONITOR PER POC.
[2020-04-06] VITALS (14 sets, daily range): BP systolic 75–104; BP diastolic 19–75
--- NOTE | 2020-04-06 05:24 | NUR ---
SPOKE TO [facility] RICH PRECIADO AT 0436; UPDATED HIM ABOUT PT STATUS. AND VITAL SIGNS AT THAT TIME; SATS 68%, HR 89, BP 81/27 RR 34. MTH STATED TO CALL THEM BACK IF PT FURTHER NEUROLOGICALLY DECLINES OR IF FAMILY DECIDES TO WITHDRAW CARE.
[2020-04-06 06:16] LABS: HEMOGLOBIN 7.4 gm/dL (12.0-15.0)
[2020-04-06 06:20] LABS: HEMATOCRIT 24.1 % (37.0-47.0); MCH 30.5 pg (26.0-34.0); MCHC 30.7 g/dL (28.0-37.0); MCV 99.2 fL (80.0-100.0); RBC 2.43 mil/uL (4.20-5.00); RDW 22.5 % (10.5-14.5); WBC 11.7 thou/uL (4.0-11.0)
[2020-04-06 06:27] LABS: CALCIUM 8.9 mg/dL (8.5-10.1); CREATININE 2.6 mg/dL (0.6-1.0); POTASSIUM 5.7 mmol/L (3.5-5.1)
--- NOTE | 2020-04-06 07:44 | NUR ---
sinus rhythm on monitor, then asystole. pupils fixed and dilated, no resp or apical hr for one minute. all confirmed with Mary Bergman RN. Dr. Almeida notified of change in pt status. when present he confirmed pt and discontinued ventilation per vent. Marycruz Macias, Daughter notified of pt expiring. obtained names of the three authorized contacts. daughter and 2 other authorized contact present. per daughter's request resp paged, then they arrived and removed the endotrachael tube. RN providing support to family members. Donte Whipple present to provide additional support. [facility] notified of , not a candidate for donation.
--- NOTE | 2020-04-06 10:02 | NUR ---
When Marycruz and her family had spend an adequate amount of time with their loved one, she stated that she was leaving now. rn provided support. all questions answered to satisfaction.
--- NOTE | 2020-04-06 14:18 | NUR ---
PT BAGGED, SECURITY NOTIFIED OF BODY.
== END 2020-04-06 07:44 | DRG 870 ==
LOC: ER 17:15 → 3W 20:03 → ICU 20:03 → EROBS 20:03 → 3W 21:47 → ICU 03-07 14:05 → 2N 03-27 12:00 → ICU 03-27 12:08
PROVIDERS: Hospitalist; Internal Medicine; Internal Medicine Gastroenterology; Internal Medicine Nephrology; Internal Medicine Pulmonary Disease; Nurse Practitioner; Nurse Practitioner Family; Pediatrics; Physician Assistant; Specialist; ADMIT Hospitalist; ATTEND Hospitalist
PROC: 5A0935A Assistance with Respiratory Ventilation, Less than 24 Consecutive Hours, High Flow/Velocity Cannula (ICD-10-PCS; principal; 2020-02-29)
PROC: 5A09357 Assistance with Respiratory Ventilation, Less than 24 Consecutive Hours, Continuous Positive Airway Pressure (ICD-10-PCS; principal; 2020-02-29)
PROC: XW033E5 Introduction of Remdesivir Anti-infective into Peripheral Vein, Percutaneous Approach, New Technology Group 5 (ICD-10-PCS; 2020-03-01)
PROC: 5A09357 Assistance with Respiratory Ventilation, Less than 24 Consecutive Hours, Continuous Positive Airway Pressure (ICD-10-PCS; 2020-03-01)
PROC: 02HV33Z Insertion of Infusion Device into Superior Vena Cava, Percutaneous Approach (ICD-10-PCS; 2020-03-01)
PROC: 5A0935A Assistance with Respiratory Ventilation, Less than 24 Consecutive Hours, High Flow/Velocity Cannula (ICD-10-PCS; 2020-03-02)
PROC: 02HV33Z Insertion of Infusion Device into Superior Vena Cava, Percutaneous Approach (ICD-10-PCS; 2020-03-02)
PROC: 5A09357 Assistance with Respiratory Ventilation, Less than 24 Consecutive Hours, Continuous Positive Airway Pressure (ICD-10-PCS; 2020-03-02)
PROC: 5A0935A Assistance with Respiratory Ventilation, Less than 24 Consecutive Hours, High Flow/Velocity Cannula (ICD-10-PCS; 2020-03-03)
PROC: 5A09357 Assistance with Respiratory Ventilation, Less than 24 Consecutive Hours, Continuous Positive Airway Pressure (ICD-10-PCS; 2020-03-03)
PROC: 5A09357 Assistance with Respiratory Ventilation, Less than 24 Consecutive Hours, Continuous Positive Airway Pressure (ICD-10-PCS; 2020-03-04)
PROC: 5A0935A Assistance with Respiratory Ventilation, Less than 24 Consecutive Hours, High Flow/Velocity Cannula (ICD-10-PCS; 2020-03-04)
PROC: 5A0935A Assistance with Respiratory Ventilation, Less than 24 Consecutive Hours, High Flow/Velocity Cannula (ICD-10-PCS; 2020-03-05)
PROC: 5A09357 Assistance with Respiratory Ventilation, Less than 24 Consecutive Hours, Continuous Positive Airway Pressure (ICD-10-PCS; 2020-03-05)
PROC: 5A09357 Assistance with Respiratory Ventilation, Less than 24 Consecutive Hours, Continuous Positive Airway Pressure (ICD-10-PCS; 2020-03-06)
PROC: 5A0935A Assistance with Respiratory Ventilation, Less than 24 Consecutive Hours, High Flow/Velocity Cannula (ICD-10-PCS; 2020-03-06)
PROC: 5A0935A Assistance with Respiratory Ventilation, Less than 24 Consecutive Hours, High Flow/Velocity Cannula (ICD-10-PCS; 2020-03-07)
PROC: 5A09457 Assistance with Respiratory Ventilation, 24-96 Consecutive Hours, Continuous Positive Airway Pressure (ICD-10-PCS; 2020-03-08)
PROC: 0BH18EZ Insertion of Endotracheal Airway into Trachea, Via Natural or Artificial Opening Endoscopic (ICD-10-PCS; 2020-03-09)
PROC: 5A1955Z Respiratory Ventilation, Greater than 96 Consecutive Hours (ICD-10-PCS; 2020-03-09)
PROC: 0DJ08ZZ Inspection of Upper Intestinal Tract, Via Natural or Artificial Opening Endoscopic (ICD-10-PCS; 2020-03-10)
PROC: 05HY33Z Insertion of Infusion Device into Upper Vein, Percutaneous Approach (ICD-10-PCS; 2020-03-10)
PROC: 30233N1 Transfusion of Nonautologous Red Blood Cells into Peripheral Vein, Percutaneous Approach (ICD-10-PCS; 2020-03-23)
DX: A41.89 Other specified sepsis (principal); U07.1 COVID-19; L89.323 Pressure ulcer of left buttock, stage 3; L89.313 Pressure ulcer of right buttock, stage 3; J12.82 Pneumonia due to coronavirus disease 2019; E43 Unspecified severe protein-calorie malnutrition; K29.71 Gastritis, unspecified, with bleeding; K22.11 Ulcer of esophagus with bleeding; J80 Acute respiratory distress syndrome; G92 Toxic encephalopathy; N17.0 Acute kidney failure with tubular necrosis; E87.0 Hyperosmolality and hypernatremia; I69.354 Hemiplegia and hemiparesis following cerebral infarction affecting left non-dominant side; L03.115 Cellulitis of right lower limb; L03.116 Cellulitis of left lower limb; R04.2 Hemoptysis; I12.9 Hypertensive chronic kidney disease with stage 1 through stage 4 chronic kidney disease, or unspecified chronic kidney disease; B36.8 Other specified superficial mycoses; N30.90 Cystitis, unspecified without hematuria; E66.01 Morbid (severe) obesity due to excess calories; N18.30 Chronic kidney disease, stage 3 unspecified; T38.0X5A Adverse effect of glucocorticoids and synthetic analogues, initial encounter; D69.6 Thrombocytopenia, unspecified; E87.5 Hyperkalemia; E11.65 Type 2 diabetes mellitus with hyperglycemia; E11.22 Type 2 diabetes mellitus with diabetic chronic kidney disease; D64.9 Anemia, unspecified; I46.9 Cardiac arrest, cause unspecified; Z66 Do not resuscitate; Z51.5 Encounter for palliative care; Z79.899 Other long term (current) drug therapy; Z85.528 Personal history of other malignant neoplasm of kidney; Y92.89 Other specified places as the place of occurrence of the external cause
CPT/HCPCS: 10078; 10879; 85076